=== PATIENT | female | born 1960 | race American Indian/Alaskan Native ===

== ENCOUNTER 2017-03-29 09:59 | Outpatient (CLI) | payer OTHER ==
--- NOTE | 2017-03-29 15:43 | XRay Report ---
AP and lateral of the lumbar spine. Findings: There is moderate narrowing of the disc spaces at the L3-4 and L5-S1 levels. Vertebral body heights are normal. There is diffuse osteopenia. No fractures or other acute findings are seen. Extensive amorphous uterine calcifications are incidentally noted. Impression: Discogenic changes at L3-4 and L5-S1. Evidence of fibroid uterus is noted incidentally.
--- NOTE | 2017-03-29 15:44 | XRay Report ---
RIGHT SHOULDER: History: Shoulder pain. Routine views demonstrate normal bony and soft tissue structures with normal joint alignment of the shoulder. IMPRESSION: Normal study.
== END 2017-03-29 10:00 | disposition home or self-care (01) ==
LOC: XRAY 09:59
PROVIDERS: ATTEND Internal Medicine
DX: M85.88 Other specified disorders of bone density and structure, other site (principal); M25.511 Pain in right shoulder; D25.9 Leiomyoma of uterus, unspecified; H54.62 Unqualified visual loss, left eye, normal vision right eye; L93.0 Discoid lupus erythematosus
CPT/HCPCS: 72100

== ENCOUNTER 2017-04-06 15:58 | Inpatient (IN) | payer SELFPAY ==
[2017-04-06] MEDS ORDERED: TYLENOL PO ONE ×2 (16:18→21:21)
[2017-04-06] MEDS ORDERED: TYLENOL ONE (16:20)
[2017-04-06 16:51] LABS: BUN/Creatinine Ratio 8; Blood Urea Nitrogen 6 mg/dL (7-17); Hemolysis Index 4
[2017-04-06 17:05] LABS: Hematocrit 36.8 % (30.3-42.9); Hemoglobin 12.2 gm/dl (10.1-14.3); Mean Corpuscular HGB Conc 33 % (30-34); Mean Corpuscular Hemoglobin 30 pg (28-32); Mean Corpuscular Volume 92 fl (79-97); Platelet Count 194 K/mm3 (140-440); Red Blood Count 4.02 M/mm3 (3.65-5.03); Red Cell Distribution Width 13.5 % (13.2-15.2)
--- NOTE | 2017-04-06 17:35 | XRay Report ---
FINAL REPORT EXAM: XR CHEST ROUTINE 2V HISTORY: fever/cough TECHNIQUE: Two views of the chest Comparison: None FINDINGS: Normal heart size. There R bilateral ill-defined increased markings in both lung bases infrahilar regions which may represent atelectasis or early infiltrates. Lateral film suggests lower lobe infiltrate. One of the 2 costophrenic angles is obscured. IMPRESSION: Probable lower lobe infiltrates. Obscured posterior costophrenic angle. Recommend follow-up two view chest after treatment. No hilar contour abnormality to suggest adenopathy.
[2017-04-06 18:20] LABS: Bilirubin,Urine NEG (Negative); Blood,Urine SM (Negative); Color,Urine Yellow (Yellow); Mucus,Urine FEW /HPF; Nitrite,Urine NEG (Negative)
[2017-04-06] MEDS ORDERED: NACL 0.9% 1000 ML 1,000 ML IV ONE (20:29)
[2017-04-06] MEDS ORDERED: ROCEPHIN/NS 1 GM/50 ML 1 GM/50 ML BAG IV ONE (20:29)
[2017-04-06] MEDS ORDERED: ZITHROMAX PO ONE (20:29)
[2017-04-06] MEDS ORDERED: MOTRIN PO ONE (20:32)
--- NOTE | 2017-04-06 20:33 | Emergency Department Report ---
<KARI CALIX - Last Filed: 04/06/17 20:29> ED Fever HPI - General Chief Complaint: Fever Stated Complaint: FEVER Time Seen by Provider: 04/06/17 20:18 - History of Present Illness Initial Comments: 57-year-old female past medical history medical lupus presents with complaint of fever cough and body aches and chills for 2 days. Patient states that she has had productive cough. Patient is awake alert and oriented 3 denies chest pain but does state that she feels her heart is racing slightly. Patient speaking in full sentences. Awake alert and oriented 3. Timing/Duration: other (2 days) Fever Severity/Quality: greater than 102 F Fever Therapy CAUL PULLER: cold remedies, Tylenol Associated Symptoms: denies symptoms, cough ED Review of Systems ROS: Stated complaint: FEVER Other details as noted in HPI Constitutional: fever, malaise. denies: chills Eyes: denies: eye pain, eye discharge, vision change ENT: denies: ear pain, throat pain Respiratory: cough. denies: shortness of breath, wheezing Cardiovascular: denies: chest pain, palpitations Endocrine: no symptoms reported Gastrointestinal: denies: abdominal pain, nausea, diarrhea Genitourinary: denies: urgency, dysuria, discharge Musculoskeletal: denies: back pain, joint swelling, arthralgia Skin: denies: rash, lesions Neurological: denies: headache, weakness, paresthesias Psychiatric: denies: anxiety, depression Hematological/Lymphatic: denies: easy bleeding, easy bruising ED Past Medical Hx - Past Medical History Additional medical history: Lupus - Social History Smoking Status: Former Smoker Substance Use Type: None - Medications Home Medications: Home Medications Medication Instructions Recorded Confirmed Last Taken Type Lisinopril/Hydrochlorothiazide 04/06/17 04/06/17 History 1 ED Physical Exam - General Limitations: No Limitations General appearance: alert, in no apparent distress - Head Head exam: Present: atraumatic, normocephalic - Eye Eye exam: Present: normal appearance, PERRL, EOMI - ENT ENT exam: Present: mucous membranes moist - Neck Neck exam: Present: normal inspection - Respiratory Respiratory exam: Present: normal lung sounds bilaterally, respiratory distress , rhonchi - Cardiovascular Cardiovascular Exam: Present: regular rate, normal rhythm. Absent: systolic murmur, diastolic murmur, rubs, gallop - GI/Abdominal GI/Abdominal exam: Present: soft, normal bowel sounds - Extremities Exam Extremities exam: Present: normal inspection - Back Exam Back exam: Present: normal inspection - Neurological Exam Neurological exam: Present: alert, oriented X3, CN II-XII intact, normal gait - Psychiatric Psychiatric exam: Present: normal affect, normal mood - Skin Skin exam: Present: warm, dry, intact, normal color. Absent: rash ED Course Vital Signs 04/06/17 04/06/17 04/06/17 16:11 16:43 22:32 Temperature 102.6 F H Pulse Rate 110 H 75 Respiratory 20 18 16 Rate Blood Pressure 178/93 Blood Pressure 147/83 [Left] O2 Sat by Pulse 98 95 Oximetry ED Medical Decision Making - Lab Data Result diagrams: 04/06/17 16:21 04/06/17 16:21 - Medical Decision Making A/P: Sepsis, community-acquired pneumonia, SIRS 1-case discussed with Dr. Rodríguez who agrees to admit the patient for IV antibiotic as patient meets sepsis and SIRS criteria 2-sepsis protocol ordered. I will begin to empirically treat the patient with ceftriaxone and azithromycin for community-acquired pneumonia 3- 4- Critical care attestation.: If time is entered above; I have spent that time in minutes in the direct care of this critically ill patient, excluding procedure time. ED Disposition Clinical Impression: Bilateral pneumonia Qualifiers: Pneumonia type: due to unspecified organism Lung location: unspecified part of lung Qualified Code(s): J18.9 - Pneumonia, unspecified organism Fever Qualifiers: Fever type: unspecified Qualified Code(s): R50.9 - Fever, unspecified Lupus Qualifiers: Lupus erythematosus form: unspecified Qualified Code(s): L93.0 - Discoid lupus erythematosus Condition: Stable Instructions: Bacterial Pneumonia (ED) Referrals: PRIMARY CARE, [Primary Care Provider] - 3-5 Days <CECILIA ROCA - Last Filed: 04/06/17 22:43> ED Physical Exam - General General appearance: other (APPEARS WEAK,ILL) - Neck Neck exam: Present: full ROM - Rectal Rectal exam: Present: deferred - Extremities Exam Extremities exam: Present: full ROM - Back Exam Back exam: Present: full ROM ED Medical Decision Making - Lab Data Result diagrams: 04/06/17 16:21 04/06/17 16:21 ED Disposition Time of Disposition: 22:40 (DR REBEKAH TOLBERT AND HAS ADMITTED THE PT TO THE HOSPITAL)
[2017-04-06] MEDS ORDERED: cefTRIAXone 1 GM in NACL 0.9% 20 ML IV ONE (20:45)
[2017-04-06 21:17] LABS: Alanine Aminotransferase 43 units/L (7-56); Albumin 4.2 g/dL (3.9-5); Lipase 30 units/L (13-60)
[2017-04-06 21:21] LABS: INR 1.06 (0.87-1.13)
[2017-04-06 21:22] LABS: Bilirubin,Direct < 0.2 mg/dL (0-0.2)
[2017-04-06 21:26] LABS: Bacteria,Urine 1+ /HPF (Negative); Bilirubin,Urine NEG (Negative); Blood,Urine SM (Negative); Color,Urine Straw (Yellow); Mucus,Urine FEW /HPF; Nitrite,Urine NEG (Negative); Protein,Urine <15 mg/dL mg/dL (Negative); Urobilinogen,Urine < 2.0 mg/dL (<2.0)
[2017-04-06] MEDS ORDERED: NACL ONE (21:44)
--- NOTE | 2017-04-06 22:41 | History and Physical Report ---
History of Present Illness Date of examination: 04/06/17 Date of admission: 04/06/2017 Chief complaint: Chief complaint :fever of 2 days' duration History of present illness: History of Present Illness 57-year-old -[place] female with past medical history of lupus and hypertension comes in for fever of 2 days' duration. Fever associated with cough. Some wheezing. Cough productive of mucoid sputum. Some body aches present. Fever as high as 102 F.No exacerbating or relieving factors. Review of System: Constitutional: fever, no chills, no weight loss Ears, eyes, nose, mouth and throat: no nasal congestion, no nasal discharge, no sinus pressure, no vision change, no red eye. Neck: No neck pain or rigidity. Cardiovascular: No chest pain, no orthopnea, no palpitations, no leg swelling Respiratory: No shortness of breath, no cough, no congestion, no wheezing Gastrointestinal: no abdominal pain, no nausea, no vomiting Genitourinary : no dysuria, no hematuria Musculoskeletal: no joint swelling or muscle ache Integumentary: no rash, no pruritis Neurological: no parathesias, no numbness, no tingling Endocrine: no cold or heat intolerance, no polyuria or polydipsia Hematologic/Lymphatic: no easy bruising, no easy bleeding, no gland swelling Allergic/Immunologic: no urticaria, no angioedema. -Past Medical History Additional medical history: Lupus and hypertension - Social History Smoking Status: Former Smoker Substance Use Type: None Surgical history: - Medications Home Medications: Home Medications Medication Instructions Recorded Confirmed Last Taken Type Lisinopril/Hydrochlorothiazide 04/06/17 04/06/17 History 1 Medications and Allergies Allergies Allergy/AdvReac Type Severity Reaction Status Date / Time No Known Allergies Allergy Verified 04/06/17 21:57 Home Medications Medication Instructions Recorded Confirmed Last Taken Type Lisinopril/Hydrochlorothiazide 04/06/17 04/06/17 History 1 Exam - Constitutional Vitals: Temp Pulse Resp BP Pulse Ox 102.6 F H 75 16 147/83 95 04/06/17 16:11 04/06/17 22:32 04/06/17 22:32 04/06/17 22:32 04/06/17 22:32 General appearance: Present: no acute distress, well-nourished - EENT Eyes: Present: PERRL ENT: hearing intact, clear oral mucosa - Neck Neck: Present: supple, normal ROM - Respiratory Respiratory effort: normal Respiratory: right: rhonchi, bilateral: CTA - Cardiovascular Heart rate: 100 Rhythm: regular Heart Sounds: Present: S1 & S2. Absent: rub, click - Extremities Extremities: no ischemia, pulses intact, pulses symmetrical, No edema Peripheral Pulses: within normal limits - Abdominal General gastrointestinal: Present: soft, non-tender, non-distended, normal bowel sounds Female genitourinary: Present: normal - Rectal Rectal Exam: deferred - Integumentary Integumentary: Present: clear, warm, dry - Musculoskeletal Musculoskeletal: gait normal, strength equal bilaterally - Psychiatric Psychiatric: appropriate mood/affect, intact judgment & insight - Neurologic Neurologic: CNII-XII intact, moves all extremities - Allied Health Allied health notes reviewed: nursing, case management Results - Labs CBC & Chem 7: 04/07/17 06:43 04/07/17 06:43 Labs: Laboratory Last Values WBC 5.4 K/mm3 (4.5-11.0) 04/06/17 16:21 RBC 4.02 M/mm3 (3.65-5.03) 04/06/17 16:21 Hgb 12.2 gm/dl (10.1-14.3) 04/06/17 16:21 Hct 36.8 % (30.3-42.9) 04/06/17 16:21 MCV 92 fl (79-97) 04/06/17 16:21 MCH 30 pg (28-32) 04/06/17 16:21 MCHC 33 % (30-34) 04/06/17 16:21 RDW 13.5 % (13.2-15.2) 04/06/17 16:21 Plt Count 194 K/mm3 (140-440) 04/06/17 16:21 PT 14.3 Sec. (12.2-14.9) 04/06/17 20:38 INR 1.06 (0.87-1.13) 04/06/17 20:38 D-Dimer 607.63 ng/mlDDU (0-234) H 04/06/17 20:38 Sodium 137 mmol/L (137-145) 04/06/17 16:21 Potassium 3.7 mmol/L (3.6-5.0) 04/06/17 16:21 Chloride 98.6 mmol/L (98-107) 04/06/17 16:21 Carbon Dioxide 21 mmol/L (22-30) L 04/06/17 16:21 Anion Gap 21 mmol/L 04/06/17 16:21 BUN 6 mg/dL (7-17) L 04/06/17 16:21 Creatinine 0.8 mg/dL (0.7-1.2) 04/06/17 16:21 Estimated GFR > 60 ml/min 04/06/17 16:21 BUN/Creatinine Ratio 8 % 04/06/17 16:21 Glucose 90 mg/dL (65-100) 04/06/17 16:21 Lactic Acid 0.90 mmol/L (0.7-2.0) 04/06/17 20:38 Calcium 9.0 mg/dL (8.4-10.2) 04/06/17 16:21 Total Bilirubin 0.80 mg/dL (0.1-1.2) 04/06/17 20:38 Direct Bilirubin < 0.2 mg/dL (0-0.2) 04/06/17 20:38 Indirect Bilirubin 0.6 mg/dL 04/06/17 20:38 AST 33 units/L (5-40) 04/06/17 20:38 ALT 43 units/L (7-56) 04/06/17 20:38 Alkaline Phosphatase 67 units/L (35-129) 04/06/17 20:38 Total Protein 7.9 g/dL (6.3-8.2) 04/06/17 20:38 Albumin 4.2 g/dL (3.9-5) 04/06/17 20:38 Albumin/Globulin Ratio 1.1 % 04/06/17 20:38 Lipase 30 units/L (13-60) 04/06/17 20:38 Urine Color Straw (Yellow) 04/06/17 20:30 Urine Turbidity Clear (Clear) 04/06/17 20:30 Urine pH 6.0 (5.0-7.0) 04/06/17 20:30 Ur Specific [place] 1.004 (1.003-1.030) 04/06/17 20:30 Urine Protein <15 mg/dl mg/dL (Negative) 04/06/17 20:30 Urine Glucose (UA) Neg mg/dL (Negative) 04/06/17 20:30 Urine Ketones Neg mg/dL (Negative) 04/06/17 20:30 Urine Blood Sm (Negative) 04/06/17 20:30 Urine Nitrite Neg (Negative) 04/06/17 20:30 Urine Bilirubin Neg (Negative) 04/06/17 20:30 Urine Urobilinogen < 2.0 mg/dL (<2.0) 04/06/17 20:30 Ur Leukocyte Esterase Tr (Negative) 04/06/17 20:30 Urine WBC (Auto) 1.0 /HPF (0.0-6.0) 04/06/17 20:30 Urine RBC (Auto) 4.0 /HPF (0.0-6.0) 04/06/17 20:30 U Epithel Cells (Auto) 1.0 /HPF (0-13.0) 04/06/17 20:30 Urine Bacteria (Auto) 1+ /HPF (Negative) 04/06/17 20:30 Urine Mucus Few /HPF 04/06/17 20:30 - Imaging and Cardiology EKG: report reviewed (normal sinus rhythm heart rate of [address]-T wave changes. ) Chest x-ray: report reviewed (probable bilateral lower lobe infiltrates) Assessment and Plan Advance Directives: Yes (full code) VTE prophylaxis?: Chemical Plan of care discussed with patient/family: Yes - Patient Problems (1) SIRS (systemic inflammatory response syndrome) Current Visit: Yes Status: Acute Plan to address problem: Clinical picture c/w SIRS.Lactic acid is normal.High temp and PNA precipitating SIRS.IV fluids and IV Abx. (2) HCAP (healthcare-associated pneumonia) Current Visit: Yes Status: Acute Plan to address problem: patient initiated on Rocephin and Zithromax. Also Duonebs 6 hours when necessary (3) COPD (chronic obstructive pulmonary disease) Current Visit: Yes Status: Chronic Qualifiers: Emphysema type: unspecified Plan to address problem: Patient initiated on DuoNeb every 6 hours around the clock (4) Lupus Current Visit: Yes Status: Chronic Qualifiers: Lupus erythematosus form: systemic Plan to address problem: not on any medications. May benefit from plaquenil. ds DNA ordered.Will defer to hospitalist team regarding starting plaquenil. (5) Hypertension Current Visit: Yes Status: Chronic Qualifiers: Hypertension type: essential hypertension Qualified Code(s): I10 - Essential (primary) hypertension Plan to address problem: continue lisinopril (6) DVT prophylaxis Current Visit: Yes Status: Acute Plan to address problem: on Lovenox.
[2017-04-06] MEDS ORDERED: MILK OF MAGNESIA PO PRN ×2 (22:47→22:53)
[2017-04-06] MEDS ORDERED: PERCOCET 5/325 PO PRN (22:47)
[2017-04-06] MEDS ORDERED: DULCOLAX PR PRN ×2 (22:47→22:53)
[2017-04-06] MEDS ORDERED: TYLENOL PO PRN (22:53)
[2017-04-06] MEDS ORDERED: ZOFRAN IV PRN (22:53)
[2017-04-06] MEDS ORDERED: AMBIEN PO PRN (22:53)
[2017-04-06] MEDS ORDERED: MORPHINE IV PRN (22:53)
[2017-04-06] MEDS ORDERED: D5NS 1,000 ML IV SCH (23:00)
--- NOTE | 2017-04-06 23:30 | Cat Scan Report ---
FINAL REPORT EXAM: CT ANGIO CHEST HISTORY: d-dimer+ tachy, lupus ? PE COMPARISON: Chest x-ray from the same date. TECHNIQUE: Contiguous axial images were obtained. Additional sagittal and coronal reformatted images were obtained. Administration of IV contrast given per institution protocol. Images submitted for interpretation. Max intensity projection images. FINDINGS: Mild cardiac enlargement. Thoracic aorta normal in caliber. The ascending thoracic aorta measures 3.3 centimeters in diameter. No dissection or rupture. No pulmonary embolus. Patchy airspace consolidation the medial margin right lower lobe concerning for pneumonia. Probable reactive right hilar and subcarinal lymph nodes. There is an 11 x 9 millimeter right hilar lymph node. Subcarinal lymph node measuring 11 x 7 millimeters. No enlarged axillary lymph nodes. Trace right-sided pleural effusion. No obstructive lesion centrally within the tracheobronchial tree. Mild degenerative changes of the thoracic spine. IMPRESSION: No pulmonary embolus. Airspace consolidation medial margin right lower lobe concerning for pneumonia with probable reactive right hilar lymph nodes.
[2017-04-07] MEDS: DUONEB *Not for PRN Use IH SCH ×5 (05:47→20:14)
[2017-04-07] MEDS: TYLENOL PO PRN ×3 (07:21→19:05)
[2017-04-07 07:32] LABS: Basophils # (Auto) 0.1 K/mm3 (0.0-0.1); Basophils % (Auto) 1.5 % (0.0-1.8); Eosinophils % (Auto) 0.2 % (0.0-4.3); Hematocrit 35.3 % (30.3-42.9); Hemoglobin 11.6 gm/dl (10.1-14.3); Lymphocytes # (Auto) 0.7 K/mm3 (1.2-5.4); Mean Corpuscular HGB Conc 33 % (30-34); Mean Corpuscular Hemoglobin 30 pg (28-32); Mean Corpuscular Volume 91 fl (79-97); Monocytes # (Auto) 0.4 K/mm3 (0.0-0.8); Monocytes % (Auto) 11.9 % (0.0-7.3); Platelet Count 179 K/mm3 (140-440); Red Blood Count 3.89 M/mm3 (3.65-5.03); Red Cell Distribution Width 13.6 % (13.2-15.2)
[2017-04-07 07:51] LABS: Alanine Aminotransferase 35 units/L (7-56); Albumin 3.6 g/dL (3.9-5); BUN/Creatinine Ratio 11; Blood Urea Nitrogen 8 mg/dL (7-17); Calcium 8.5 mg/dL (8.4-10.2); Hemolysis Index 1
[2017-04-07] MEDS: LOVENOX SUB-Q SCH (09:33)
[2017-04-07] MEDS: ZESTRIL PO SCH (09:35)
[2017-04-07] MEDS ORDERED: cefTRIAXone 2 GM in NACL 0.9% 20 ML IV SCH (10:00)
[2017-04-07] MEDS ORDERED: ZITHROMAX 500 MG in NACL 0.9% 250ML 250 ML IV SCH (10:00)
[2017-04-07] MEDS: NACL 0.9% 1000 ML 1,000 ML IV SCH (15:06)
--- NOTE | 2017-04-07 20:46 | Progress Note ---
Assessment and Plan Assessment and plan: 57-year-old -[place] female with past medical history of lupus and hypertension comes in for fever of 2 days' duration. Fever associated with cough. Some wheezing. Cough productive of mucoid sputum. Some body aches present. Fever as high as 102 F. No exacerbating or relieving factors. (1) Sepsis Clinical picture c/w Spesis. Will increase IV fluids, Adjust abx, ID consult (2) Pneumonia likely gram negative Discontinue IV Rocephin and Zithromax, start patient on Zosyn and vancomycin. Also Duonebs 6 hours when necessary Consult ID Increase IV fluids (3) COPD (chronic obstructive pulmonary disease) Current Visit: Yes Status: Chronic Qualifiers: Emphysema type: unspecified Plan to address problem: Patient initiated on DuoNeb every 6 hours around the clock (4) Lupus Current Visit: Yes Status: Chronic Qualifiers: Lupus erythematosus form: systemic Plan to address problem: not on any medications. May benefit from plaquenil. Once infection controlled. (5) Hypertension Current Visit: Yes Status: Chronic Qualifiers: Hypertension type: essential hypertension Qualified Code(s): I10 - Essential (primary) hypertension Plan to address problem: continue lisinopril (6) Elevated D dimer R/O DVT. (7) DVT prophylaxis Current Visit: Yes Status: Acute Plan to address problem: on Lovenox. History Interval history: Patient seen and examined, markedly lathergic still with shortness of breath, no chest pain, still febrile. Hospitalist Physical - Constitutional Vitals: Temp Pulse Resp BP Pulse Ox 102.5 F H 79 20 135/74 98 04/07/17 16:37 04/07/17 20:17 04/07/17 20:17 04/07/17 16:37 04/07/17 19:27 General appearance: Present: mild distress, well-nourished - EENT Eyes: Present: PERRL, EOM intact ENT: hearing intact - Neck Neck: Present: supple, normal ROM - Respiratory Respiratory: bilateral: rhonchi - Cardiovascular Rhythm: regular Heart Sounds: Present: S1 & S2. Absent: systolic murmur, diastolic murmur - Extremities Extremities: no ischemia, pulses intact, pulses symmetrical, No edema Peripheral Pulses: within normal limits - Abdominal General gastrointestinal: soft, non-tender, non-distended, normal bowel sounds - Integumentary Integumentary: Present: clear, warm, dry - Psychiatric Psychiatric: appropriate mood/affect, intact judgment & insight, cooperative - Neurologic Neurologic: CNII-XII intact, moves all extremities - Allied Health Allied health notes reviewed: nursing Results - Labs CBC & Chem 7: 04/08/17 05:16 04/08/17 05:16 Labs: Laboratory Last Values WBC 3.3 K/mm3 (4.5-11.0) L 04/07/17 06:43 RBC 3.89 M/mm3 (3.65-5.03) 04/07/17 06:43 Hgb 11.6 gm/dl (10.1-14.3) 04/07/17 06:43 Hct 35.3 % (30.3-42.9) 04/07/17 06:43 MCV 91 fl (79-97) 04/07/17 06:43 MCH 30 pg (28-32) 04/07/17 06:43 MCHC 33 % (30-34) 04/07/17 06:43 RDW 13.6 % (13.2-15.2) 04/07/17 06:43 Plt Count 179 K/mm3 (140-440) 04/07/17 06:43 Lymph % (Auto) 22.0 % (13.4-35.0) 04/07/17 06:43 Chambers % (Auto) 11.9 % (0.0-7.3) H 04/07/17 06:43 Eos % (Auto) 0.2 % (0.0-4.3) 04/07/17 06:43 Baso % (Auto) 1.5 % (0.0-1.8) 04/07/17 06:43 Lymph # 0.7 K/mm3 (1.2-5.4) L 04/07/17 06:43 Chambers # 0.4 K/mm3 (0.0-0.8) 04/07/17 06:43 Eos # 0.0 K/mm3 (0.0-0.4) 04/07/17 06:43 Baso # 0.1 K/mm3 (0.0-0.1) 04/07/17 06:43 Seg Neutrophils % 64.4 % (40.0-70.0) 04/07/17 06:43 Seg Neutrophils # 2.1 K/mm3 (1.8-7.7) 04/07/17 06:43 PT 14.3 Sec. (12.2-14.9) 04/06/17 20:38 INR 1.06 (0.87-1.13) 04/06/17 20:38 D-Dimer 607.63 ng/mlDDU (0-234) H 04/06/17 20:38 Sodium 140 mmol/L (137-145) 04/07/17 06:43 Potassium 3.7 mmol/L (3.6-5.0) 04/07/17 06:43 Chloride 103.0 mmol/L (98-107) 04/07/17 06:43 Carbon Dioxide 22 mmol/L (22-30) 04/07/17 06:43 Anion Gap 19 mmol/L 04/07/17 06:43 BUN 8 mg/dL (7-17) 04/07/17 06:43 Creatinine 0.7 mg/dL (0.7-1.2) 04/07/17 06:43 Estimated GFR > 60 ml/min 04/07/17 06:43 BUN/Creatinine Ratio 11 % 04/07/17 06:43 Glucose 102 mg/dL (65-100) H 04/07/17 06:43 Hemoglobin A1c 5.0 % (4-6) 04/06/17 22:57 Lactic Acid 0.70 mmol/L (0.7-2.0) 04/06/17 22:53 Calcium 8.5 mg/dL (8.4-10.2) 04/07/17 06:43 Total Bilirubin 0.70 mg/dL (0.1-1.2) 04/07/17 06:43 Direct Bilirubin < 0.2 mg/dL (0-0.2) 04/06/17 20:38 Indirect Bilirubin 0.6 mg/dL 04/06/17 20:38 AST 26 units/L (5-40) 04/07/17 06:43 ALT 35 units/L (7-56) 04/07/17 06:43 Alkaline Phosphatase 59 units/L (35-129) 04/07/17 06:43 Total Protein 7.2 g/dL (6.3-8.2) 04/07/17 06:43 Albumin 3.6 g/dL (3.9-5) L 04/07/17 06:43 Albumin/Globulin Ratio 1.0 % 04/07/17 06:43 Lipase 30 units/L (13-60) 04/06/17 20:38 Urine Color Straw (Yellow) 04/06/17 20:30 Urine Turbidity Clear (Clear) 04/06/17 20:30 Urine pH 6.0 (5.0-7.0) 04/06/17 20:30 Ur Specific [place] 1.004 (1.003-1.030) 04/06/17 20:30 Urine Protein <15 mg/dl mg/dL (Negative) 04/06/17 20:30 Urine Glucose (UA) Neg mg/dL (Negative) 04/06/17 20:30 Urine Ketones Neg mg/dL (Negative) 04/06/17 20:30 Urine Blood Sm (Negative) 04/06/17 20:30 Urine Nitrite Neg (Negative) 04/06/17 20:30 Urine Bilirubin Neg (Negative) 04/06/17 20:30 Urine Urobilinogen < 2.0 mg/dL (<2.0) 04/06/17 20:30 Ur Leukocyte Esterase Tr (Negative) 04/06/17 20:30 Urine WBC (Auto) 1.0 /HPF (0.0-6.0) 04/06/17 20:30 Urine RBC (Auto) 4.0 /HPF (0.0-6.0) 04/06/17 20:30 U Epithel Cells (Auto) 1.0 /HPF (0-13.0) 04/06/17 20:30 Urine Bacteria (Auto) 1+ /HPF (Negative) 04/06/17 20:30 Urine Mucus Few /HPF 04/06/17 20:30 - Imaging and Cardiology Chest x-ray: image reviewed (rll infiltrate)
[2017-04-07] MEDS ORDERED: VANCOMYCIN/NS 1 GM/250 ML 1 GM/250 ML BAG IV ONE (20:53)
[2017-04-07] MEDS ORDERED: VANCOMYCIN PHARMACY TO DOSE IV SCH (21:00)
[2017-04-07] MEDS: ZOSYN/NS 4.5GM/100ML 4.5 GM/100 ML VIAL IV SCH (21:52)
[2017-04-07] MEDS: VANCOMYCIN 1,250 MG in NACL 0.9% 250ML 250 ML IV ONE ×2 (22:30→23:29)
[2017-04-08] MEDS: DUONEB *Not for PRN Use IH SCH ×4 (02:00→21:00)
[2017-04-08] MEDS: ZOSYN/NS 4.5GM/100ML 4.5 GM/100 ML VIAL IV SCH ×3 (05:36→21:54)
[2017-04-08 05:37] LABS: Hematocrit 31.2 % (30.3-42.9); Hemoglobin 10.3 gm/dl (10.1-14.3); Mean Corpuscular HGB Conc 33 % (30-34); Mean Corpuscular Hemoglobin 30 pg (28-32); Mean Corpuscular Volume 92 fl (79-97); Platelet Count 145 K/mm3 (140-440); Red Blood Count 3.41 M/mm3 (3.65-5.03); Red Cell Distribution Width 13.7 % (13.2-15.2)
[2017-04-08] MEDS: TYLENOL PO PRN ×2 (05:37→16:12)
[2017-04-08 05:56] LABS: BUN/Creatinine Ratio 9; Blood Urea Nitrogen 7 mg/dL (7-17); Calcium 7.7 mg/dL (8.4-10.2); Hemolysis Index 1
[2017-04-08] MEDS: NACL 0.9% 1000 ML 1,000 ML IV SCH ×2 (07:19→15:56)
[2017-04-08] MEDS: VANCOMYCIN/NS 1 GM/250 ML 1 GM/250 ML BAG IV SCH ×2 (10:27→22:43)
[2017-04-08] MEDS: LOVENOX SUB-Q SCH (10:28)
[2017-04-08] MEDS: ZESTRIL PO SCH (10:29)
--- NOTE | 2017-04-08 13:21 | Vascular Lab Report ---
LOWER EXTREMITY VENOUS DUPLEX: REASON FOR EXAM: Lupus, fever, hypertension, DVT. COMMENTS ON THE RIGHT: All veins visualized are freely compressible without evidence of internal echogenicity. Flow is spontaneous and phasic throughout. COMMENTS ON THE LEFT: All veins visualized are freely compressible without evidence of internal echogenicity. Flow is spontaneous and phasic throughout. IMPRESSION: No evidence of acute or chronic deep venous thrombosis in either lower extremity.
[2017-04-08] MEDS: ROBITUSSIN AC PO PRN (13:31)
--- NOTE | 2017-04-08 18:39 | Progress Note ---
Assessment and Plan Assessment and plan: 57-year-old -E[place]ian female with past medical history of lupus and hypertension comes in for fever of 2 days' duration. Fever associated with cough. Some wheezing. Cough productive of mucoid sputum. Some body aches present. Fever as high as 102 F. No exacerbating or relieving factors. (1) Sepsis Clinical picture c/w Spesis. Will increase IV fluids, Adjust abx, ID consult (2) Pneumonia likely gram negative Continue Zosyn and vancomycin. Also Duonebs 6 hours when necessary IV fluids (3) COPD (chronic obstructive pulmonary disease) Patient initiated on DuoNeb every 6 hours around the clock (4) Lupus not on any medications. May benefit from plaquenil. Once infection controlled. (5) Hypertension continue lisinopril (6) Elevated D dimer R/O DVT. (7) DVT prophylaxis on Lovenox. History Interval history: Patient seen and examined, markedly lathergic still with shortness of breath, no chest pain, still febrile. Hospitalist Physical - Physical exam Narrative exam: General appearance: Present: mild distress, well-nourished - EENT Eyes: Present: PERRL, EOM intact ENT: hearing intact - Neck Neck: Present: supple, normal ROM - Respiratory Respiratory: bilateral: rhonchi - Cardiovascular Rhythm: regular Heart Sounds: Present: S1 & S2. Absent: systolic murmur, diastolic murmur - Extremities Extremities: no ischemia, pulses intact, pulses symmetrical, No edema Peripheral Pulses: within normal limits - Abdominal General gastrointestinal: soft, non-tender, non-distended, normal bowel sounds - Integumentary Integumentary: Present: clear, warm, dry - Psychiatric Psychiatric: appropriate mood/affect, intact judgment & insight, cooperative - Neurologic Neurologic: CNII-XII intact, moves all extremities - Allied Health Allied health notes reviewed: nursing - Constitutional Vitals: Temp Pulse Resp BP Pulse Ox 99.7 F H 96 H 20 149/84 100 04/08/17 16:35 04/08/17 16:35 04/08/17 16:35 04/08/17 16:35 04/08/17 16:35 General appearance: Present: mild distress, well-nourished Results - Labs CBC & Chem 7: 04/08/17 05:16 04/08/17 05:16 Labs: Laboratory Last Values WBC 3.0 K/mm3 (4.5-11.0) L 04/08/17 05:16 RBC 3.41 M/mm3 (3.65-5.03) L 04/08/17 05:16 Hgb 10.3 gm/dl (10.1-14.3) 04/08/17 05:16 Hct 31.2 % (30.3-42.9) 04/08/17 05:16 MCV 92 fl (79-97) 04/08/17 05:16 MCH 30 pg (28-32) 04/08/17 05:16 MCHC 33 % (30-34) 04/08/17 05:16 RDW 13.7 % (13.2-15.2) 04/08/17 05:16 Plt Count 145 K/mm3 (140-440) 04/08/17 05:16 Lymph % (Auto) 22.0 % (13.4-35.0) 04/07/17 06:43 [place] % (Auto) 11.9 % (0.0-7.3) H 04/07/17 06:43 Eos % (Auto) 0.2 % (0.0-4.3) 04/07/17 06:43 Baso % (Auto) 1.5 % (0.0-1.8) 04/07/17 06:43 Lymph # 0.7 K/mm3 (1.2-5.4) L 04/07/17 06:43 [place] # 0.4 K/mm3 (0.0-0.8) 04/07/17 06:43 Eos # 0.0 K/mm3 (0.0-0.4) 04/07/17 06:43 Baso # 0.1 K/mm3 (0.0-0.1) 04/07/17 06:43 Seg Neutrophils % 64.4 % (40.0-70.0) 04/07/17 06:43 Seg Neutrophils # 2.1 K/mm3 (1.8-7.7) 04/07/17 06:43 PT 14.3 Sec. (12.2-14.9) 04/06/17 20:38 INR 1.06 (0.87-1.13) 04/06/17 20:38 D-Dimer 607.63 ng/mlDDU (0-234) H 04/06/17 20:38 Sodium 142 mmol/L (137-145) 04/08/17 05:16 Potassium 3.7 mmol/L (3.6-5.0) 04/08/17 05:16 Chloride 105.7 mmol/L (98-107) 04/08/17 05:16 Carbon Dioxide 21 mmol/L (22-30) L 04/08/17 05:16 Anion Gap 19 mmol/L 04/08/17 05:16 BUN 7 mg/dL (7-17) 04/08/17 05:16 Creatinine 0.8 mg/dL (0.7-1.2) 04/08/17 05:16 Estimated GFR > 60 ml/min 04/08/17 05:16 BUN/Creatinine Ratio 9 % 04/08/17 05:16 Glucose 96 mg/dL (65-100) 04/08/17 05:16 Hemoglobin A1c 5.0 % (4-6) 04/06/17 22:57 Lactic Acid 0.70 mmol/L (0.7-2.0) 04/06/17 22:53 Calcium 7.7 mg/dL (8.4-10.2) L 04/08/17 05:16 Total Bilirubin 0.70 mg/dL (0.1-1.2) 04/07/17 06:43 Direct Bilirubin < 0.2 mg/dL (0-0.2) 04/06/17 20:38 Indirect Bilirubin 0.6 mg/dL 04/06/17 20:38 AST 26 units/L (5-40) 04/07/17 06:43 ALT 35 units/L (7-56) 04/07/17 06:43 Alkaline Phosphatase 59 units/L (35-129) 04/07/17 06:43 Total Protein 7.2 g/dL (6.3-8.2) 04/07/17 06:43 Albumin 3.6 g/dL (3.9-5) L 04/07/17 06:43 Albumin/Globulin Ratio 1.0 % 04/07/17 06:43 Lipase 30 units/L (13-60) 04/06/17 20:38 Urine Color Straw (Yellow) 04/06/17 20:30 Urine Turbidity Clear (Clear) 04/06/17 20:30 Urine pH 6.0 (5.0-7.0) 04/06/17 20:30 Ur Specific [place] 1.004 (1.003-1.030) 04/06/17 20:30 Urine Protein <15 mg/dl mg/dL (Negative) 04/06/17 20:30 Urine Glucose (UA) Neg mg/dL (Negative) 04/06/17 20:30 Urine Ketones Neg mg/dL (Negative) 04/06/17 20:30 Urine Blood Sm (Negative) 04/06/17 20:30 Urine Nitrite Neg (Negative) 04/06/17 20:30 Urine Bilirubin Neg (Negative) 04/06/17 20:30 Urine Urobilinogen < 2.0 mg/dL (<2.0) 04/06/17 20:30 Ur Leukocyte Esterase Tr (Negative) 04/06/17 20:30 Urine WBC (Auto) 1.0 /HPF (0.0-6.0) 04/06/17 20:30 Urine RBC (Auto) 4.0 /HPF (0.0-6.0) 04/06/17 20:30 U Epithel Cells (Auto) 1.0 /HPF (0-13.0) 04/06/17 20:30 Urine Bacteria (Auto) 1+ /HPF (Negative) 04/06/17 20:30 Urine Mucus Few /HPF 04/06/17 20:30
[2017-04-09] MEDS: NACL 0.9% 1000 ML 1,000 ML IV SCH ×3 (01:23→19:47)
[2017-04-09] MEDS: DUONEB *Not for PRN Use IH SCH ×4 (02:00→20:05)
[2017-04-09] MEDS: ZOFRAN IV PRN ×2 (06:09→12:58)
[2017-04-09] MEDS: ZOSYN/NS 4.5GM/100ML 4.5 GM/100 ML VIAL IV SCH ×3 (06:09→21:16)
[2017-04-09] MEDS: ZESTRIL PO SCH (09:32)
[2017-04-09] MEDS: LOVENOX SUB-Q SCH (09:33)
[2017-04-09] MEDS: VANCOMYCIN/NS 1 GM/250 ML 1 GM/250 ML BAG IV SCH ×2 (09:34→22:18)
--- NOTE | 2017-04-09 13:08 | Progress Note ---
Assessment and Plan Assessment and plan: 57-year-old -[place] female with past medical history of lupus and hypertension comes in for fever of 2 days' duration. Fever associated with cough. Some wheezing. Cough productive of mucoid sputum. Some body aches present. Fever as high as 102 F. No exacerbating or relieving factors. (1) Sepsis Clinical picture c/w Spesis. Change IVF to 125cc/hr rate, Adjust abx, ID consult (2) Pneumonia likely gram negative Continue Zosyn and vancomycin. Also Duonebs 6 hours when necessary IV fluids (3) COPD (chronic obstructive pulmonary disease) Patient initiated on DuoNeb every 6 hours around the clock (4) Lupus not on any medications. May benefit from plaquenil. Once infection controlled. (5) Hypertension continue lisinopril (6) Elevated D dimer R/O DVT. (7) DVT prophylaxis on Lovenox. Encouraged ambulation. Discussed with patient and Case management and Nursing staff History Interval history: Patient seen and examined, Reports improvement today. No new complaints, still with some shortness of breath but ambulating Hospitalist Physical - Physical exam Narrative exam: General appearance: Present: mild distress, well-nourished - EENT Eyes: Present: PERRL, EOM intact ENT: hearing intact - Neck Neck: Present: supple, normal ROM - Respiratory Respiratory: bilateral: rhonchi - Cardiovascular Rhythm: regular Heart Sounds: Present: S1 & S2. Absent: systolic murmur, diastolic murmur - Extremities Extremities: no ischemia, pulses intact, pulses symmetrical, No edema Peripheral Pulses: within normal limits - Abdominal General gastrointestinal: soft, non-tender, non-distended, normal bowel sounds - Integumentary Integumentary: Present: clear, warm, dry - Psychiatric Psychiatric: appropriate mood/affect, intact judgment & insight, cooperative - Neurologic Neurologic: CNII-XII intact, moves all extremities - Allied Health Allied health notes reviewed: nursing - Constitutional Vitals: Temp Pulse Resp BP Pulse Ox 99.9 F H 85 20 154/82 94 04/09/17 11:37 04/09/17 11:37 04/09/17 11:37 04/09/17 11:37 04/09/17 11:37 General appearance: Present: mild distress, well-nourished Results - Labs CBC & Chem 7: 04/08/17 05:16 04/08/17 05:16 Labs: Laboratory Last Values WBC 3.0 K/mm3 (4.5-11.0) L 04/08/17 05:16 RBC 3.41 M/mm3 (3.65-5.03) L 04/08/17 05:16 Hgb 10.3 gm/dl (10.1-14.3) 04/08/17 05:16 Hct 31.2 % (30.3-42.9) 04/08/17 05:16 MCV 92 fl (79-97) 04/08/17 05:16 MCH 30 pg (28-32) 04/08/17 05:16 MCHC 33 % (30-34) 04/08/17 05:16 RDW 13.7 % (13.2-15.2) 04/08/17 05:16 Plt Count 145 K/mm3 (140-440) 04/08/17 05:16 Lymph % (Auto) 22.0 % (13.4-35.0) 04/07/17 06:43 [place] % (Auto) 11.9 % (0.0-7.3) H 04/07/17 06:43 Eos % (Auto) 0.2 % (0.0-4.3) 04/07/17 06:43 Baso % (Auto) 1.5 % (0.0-1.8) 04/07/17 06:43 Lymph # 0.7 K/mm3 (1.2-5.4) L 04/07/17 06:43 [place] # 0.4 K/mm3 (0.0-0.8) 04/07/17 06:43 Eos # 0.0 K/mm3 (0.0-0.4) 04/07/17 06:43 Baso # 0.1 K/mm3 (0.0-0.1) 04/07/17 06:43 Seg Neutrophils % 64.4 % (40.0-70.0) 04/07/17 06:43 Seg Neutrophils # 2.1 K/mm3 (1.8-7.7) 04/07/17 06:43 PT 14.3 Sec. (12.2-14.9) 04/06/17 20:38 INR 1.06 (0.87-1.13) 04/06/17 20:38 D-Dimer 607.63 ng/mlDDU (0-234) H 04/06/17 20:38 Sodium 142 mmol/L (137-145) 04/08/17 05:16 Potassium 3.7 mmol/L (3.6-5.0) 04/08/17 05:16 Chloride 105.7 mmol/L (98-107) 04/08/17 05:16 Carbon Dioxide 21 mmol/L (22-30) L 04/08/17 05:16 Anion Gap 19 mmol/L 04/08/17 05:16 BUN 7 mg/dL (7-17) 04/08/17 05:16 Creatinine 0.8 mg/dL (0.7-1.2) 04/08/17 05:16 Estimated GFR > 60 ml/min 04/08/17 05:16 BUN/Creatinine Ratio 9 % 04/08/17 05:16 Glucose 96 mg/dL (65-100) 04/08/17 05:16 Hemoglobin A1c 5.0 % (4-6) 04/06/17 22:57 Lactic Acid 0.70 mmol/L (0.7-2.0) 04/06/17 22:53 Calcium 7.7 mg/dL (8.4-10.2) L 04/08/17 05:16 Total Bilirubin 0.70 mg/dL (0.1-1.2) 04/07/17 06:43 Direct Bilirubin < 0.2 mg/dL (0-0.2) 04/06/17 20:38 Indirect Bilirubin 0.6 mg/dL 04/06/17 20:38 AST 26 units/L (5-40) 04/07/17 06:43 ALT 35 units/L (7-56) 04/07/17 06:43 Alkaline Phosphatase 59 units/L (35-129) 04/07/17 06:43 Total Protein 7.2 g/dL (6.3-8.2) 04/07/17 06:43 Albumin 3.6 g/dL (3.9-5) L 04/07/17 06:43 Albumin/Globulin Ratio 1.0 % 04/07/17 06:43 Lipase 30 units/L (13-60) 04/06/17 20:38 Urine Color Straw (Yellow) 04/06/17 20:30 Urine Turbidity Clear (Clear) 04/06/17 20:30 Urine pH 6.0 (5.0-7.0) 04/06/17 20:30 Ur Specific [place] 1.004 (1.003-1.030) 04/06/17 20:30 Urine Protein <15 mg/dl mg/dL (Negative) 04/06/17 20:30 Urine Glucose (UA) Neg mg/dL (Negative) 04/06/17 20:30 Urine Ketones Neg mg/dL (Negative) 04/06/17 20:30 Urine Blood Sm (Negative) 04/06/17 20:30 Urine Nitrite Neg (Negative) 04/06/17 20:30 Urine Bilirubin Neg (Negative) 04/06/17 20:30 Urine Urobilinogen < 2.0 mg/dL (<2.0) 04/06/17 20:30 Ur Leukocyte Esterase Tr (Negative) 04/06/17 20:30 Urine WBC (Auto) 1.0 /HPF (0.0-6.0) 04/06/17 20:30 Urine RBC (Auto) 4.0 /HPF (0.0-6.0) 04/06/17 20:30 U Epithel Cells (Auto) 1.0 /HPF (0-13.0) 04/06/17 20:30 Urine Bacteria (Auto) 1+ /HPF (Negative) 04/06/17 20:30 Urine Mucus Few /HPF 04/06/17 20:30
[2017-04-09] MEDS: TYLENOL PO PRN (14:52)
[2017-04-09] MEDS: ROBITUSSIN AC PO PRN (17:50)
[2017-04-10] MEDS: ZOFRAN IV PRN ×3 (00:47→18:43)
[2017-04-10] MEDS: ROBITUSSIN AC PO PRN ×2 (00:47→11:34)
[2017-04-10] MEDS: TYLENOL PO PRN ×2 (00:48→11:34)
[2017-04-10] MEDS: DUONEB *Not for PRN Use IH SCH ×4 (02:15→19:53)
[2017-04-10] MEDS: NACL 0.9% 1000 ML 1,000 ML IV SCH ×3 (05:40→23:10)
[2017-04-10] MEDS: ZOSYN/NS 4.5GM/100ML 4.5 GM/100 ML VIAL IV SCH ×3 (05:42→23:10)
[2017-04-10 06:14] LABS: Hematocrit 29.1 % (30.3-42.9); Hemoglobin 9.8 gm/dl (10.1-14.3); Mean Corpuscular HGB Conc 34 % (30-34); Mean Corpuscular Hemoglobin 31 pg (28-32); Mean Corpuscular Volume 92 fl (79-97); Platelet Count 135 K/mm3 (140-440); Red Blood Count 3.17 M/mm3 (3.65-5.03); Red Cell Distribution Width 13.7 % (13.2-15.2)
[2017-04-10] MEDS: ZESTRIL PO SCH (11:29)
[2017-04-10] MEDS: LOVENOX SUB-Q SCH (11:30)
[2017-04-10] MEDS: VANCOMYCIN/NS 1 GM/250 ML 1 GM/250 ML BAG IV SCH (12:30)
--- NOTE | 2017-04-10 13:08 | Consultation ---
History of Present Illness - Reason for Consult Consult date: 04/10/17 Requesting physician: MIRELLA JOHNSON - History of Present Illness 57 years old female with history of lupus and hypertension admitted on 04/06/17 due to [place] with history of subjective fever, malaise and cough with white mucus production. Patient also reports some wheezing. Reports her had recently the flu. She did not get the flu shot this year. She had the pneumonia vaccine 5 years ago. She reports nausea and some vomiting. Denies history of MRSA colonization. In the emergency room, initial temperature was 102.6, heart rate was 60, respiration 20, O2 sat 98, blood pressure 170/93. Initial white count 5.4. Hemoglobin 12.2. Creatinine 0.8. Urinalysis is negative. Chest x-ray showed bibasilar infiltrates. CTA showed no pulmonary embolism, airspace disease consolidation mainly in the right lower lobe with reactive right hilar lymphadenopathy. Microbiology: Blood cultures: 04/06 neg Urine cultures: 04/06 neg Influenza: neg GAS: neg Current Antimicrobials: Zosyn Vancomycin Previous Antimicrobials: Past History Past Medical History: hypertension, other (lupus) Past Surgical History: No surgical history Social history: no significant social history Medications and Allergies Allergies Allergy/AdvReac Type Severity Reaction Status Date / Time No Known Allergies Allergy Verified 04/06/17 21:57 Home Medications Medication Instructions Recorded Confirmed Last Taken Type Lisinopril/Hydrochlorothiazide 04/06/17 Unknown History Active Meds: Active Medications Acetaminophen (Tylenol) 650 mg PO Q4H PRN PRN Reason: Pain MILD(1-3)/Fever >100.5/[place] Last Admin: 04/10/17 11:34 Dose: 650 mg Albuterol/Ipratropium (Duoneb *Not For Prn Use*) 1 ampul IH Q6HRT [facility] Last Admin: 04/10/17 07:32 Dose: 1 ampul Bisacodyl (Dulcolax) 10 mg IA QDAY PRN PRN Reason: Constipation unrelieved by MOM Enoxaparin Sodium (Lovenox) 40 mg SUB-Q QDAY [facility] Last Admin: 04/10/17 11:30 Dose: 40 mg Sodium Chloride (Nacl 0.9% 1000 Ml) 1,000 mls @ 150 mls/hr IV DIRECT [facility] Last Admin: 04/10/17 12:31 Dose: 150 mls/hr Piperacillin Sod/Tazobactam Sod (Zosyn/Ns 4.5gm/100ml) 4.5 gm in 100 mls @ 200 mls/hr IV Q8HR [facility] PRN Reason: Protocol Last Admin: 04/10/17 05:42 Dose: 200 mls/hr Vancomycin HCl 1,500 mg/ (Sodium Chloride) 515 mls @ 333.333 mls/hr IV Q12HR [facility] Lisinopril (Zestril) 20 mg PO QDAY [facility] Last Admin: 04/10/17 11:29 Dose: 20 mg Magnesium Hydroxide (Milk Of Magnesia) 30 ml PO Q4H PRN PRN Reason: Constipation Morphine Sulfate (Morphine) 2 mg IV Q4H PRN PRN Reason: Pain, Moderate (4-6) Ondansetron HCl (Zofran) 4 mg IV Q8H PRN PRN Reason: N/V unrelieved by Reglan Last Admin: 04/10/17 11:35 Dose: 4 mg Oxycodone/Acetaminophen (Percocet 5/325) 1 tab PO Q6H PRN PRN Reason: Pain, Moderate (4-6) Pseudoephedrine/Acetam/Chlorphenir (Robitussin Ac) 10 ml PO Q4H PRN PRN Reason: Cough Last Admin: 04/10/17 11:34 Dose: 10 ml Vancomycin HCl (Vancomycin Pharmacy To Dose) 1 each IV PKCONSULT LUCAS PRN Reason: Protocol Zolpidem Tartrate (Ambien) 5 mg PO QHS PRN PRN Reason: Insomnia Review of Systems All systems: negative (as per HPI rest neg) Physical Examination - Physical Exam Narrative exam: General appearance: Alert in NAD, conversant Eyes: anicteric sclerae, moist conjunctivae; no lid-lag; PERRLA HENT: Atraumatic; oropharynx clear Neck: Trachea midline; supple, no thyromegaly or lymphadenopathy Lungs: bibasilar crackles + right egophony CV: RRR Abdomen: Soft, non-tender; no masses or hepatosplenomegaly Extremities: No peripheral edema or extremity lymphadenopathy Skin: Normal temperature, turgor and texture; no rash, ulcers or subcutaneous nodules Psych: Appropriate affect, alert and oriented to person, place and time. Neuro: alert and oriented x 3. Moving all extermities Lines: No CVL / PICC - Constitutional Vitals: Vital Signs Temp Pulse Resp BP Pulse Ox 98.6 F 81 22 130/76 97 04/10/17 08:13 04/10/17 08:13 04/10/17 08:13 04/10/17 11:29 04/10/17 08:13 Temperature -Last 24 Hours Temperature 98.6 F Temperature 98.6 F Temperature 100.1 F Temperature 99 F Temperature 99.6 F Temperature 100.6 F Results - Labs CBC & Chem 7: 04/10/17 05:29 04/08/17 05:16 Labs: Abnormal lab results 04/10/17 Range/Units 05:29 WBC 3.6 L (4.5-11.0) K/mm3 RBC 3.17 L (3.65-5.03) M/mm3 Hgb 9.8 L (10.1-14.3) gm/dl Hct 29.1 L (30.3-42.9) % Plt Count 135 L (140-440) K/mm3 Assessment and Plan Assessment: 1) Sepsis: Present on admission, manifested by fever, tachycardia, leukocytosis. Etiology most likely pneumonia. 2) CAP vs aspiration: -Chest x-ray showed bibasilar infiltrates. -CTA showed no pulmonary embolism, airspace disease consolidation mainly in the right lower lobe with reactive right hilar lymphadenopathy. 3) Lupus 4) Hypertension Plan: -follow-up blood cultures -obtain respiratory cultures, C-reactive protein (CRP), C3, C4 -check Legionella urine antigen, Streptococcus pneumoniae urine antigen -continue zosyn and vanco for now - will stop vanco soon -add levaquin to cover atypicals -monitor fever -if better ok to d/c on levaquin total [address] Johnson for your consultation, will follow up with you. Cara Aguilar MD Infectious Diseases Specialist [facility] M [phone] O [phone]
--- NOTE | 2017-04-10 15:15 | Progress Note ---
Assessment and Plan Assessment and plan: 57-year-old -[place] female with past medical history of lupus and hypertension comes in for fever of 2 days' duration. Fever associated with cough. Some wheezing. Cough productive of mucoid sputum. Some body aches present. Fever as high as 102 F. No exacerbating or relieving factors. (1) Sepsis Clinical picture c/w Spesis. Continue IVF Adjust abx, ID consult (2) Pneumonia likely gram negative Continue Zosyn and vancomycin. Also Duonebs 6 hours when necessary IV fluids, follow-up blood cultures Per ID obtain respiratory cultures, C-reactive protein (CRP), C3, C4, check Legionella urine antigen, Streptococcus pneumoniae urine antigen Anticipate discharge in am on levaquin total 7 days (3) COPD (chronic obstructive pulmonary disease) Patient initiated on DuoNeb every 6 hours around the clock (4) Lupus not on any medications. May benefit from plaquenil. Once infection controlled. (5) Hypertension continue lisinopril (6) Elevated D dimer R/O DVT. (7) DVT prophylaxis on Lovenox. Encouraged ambulation. Discussed with patient and Case management and Nursing staff History Interval history: Patient seen and examined, still with cough, low grade fever last night, continues to notice gradual improvement Hospitalist Physical - Physical exam Narrative exam: VITAL SIGNS: Reviewed. GENERAL: The patient appeared well nourished and normally developed. Vital signs as documented. HEAD: No signs of head trauma. EYES: Pupils are equal. Extraocular motions intact. EARS: Hearing grossly intact. MOUTH: Oropharynx is normal. NECK: No adenopathy, no JVD. CHEST: Chest with crackles breath sounds bilaterally. No wheezes, rales, or rhonchi. CARDIAC: Regular rate and rhythm. S1 and S2, without murmurs, gallops, or rubs. VASCULAR: No Edema. Peripheral pulses normal and equal in all extremities. ABDOMEN: Soft, without detectable tenderness. No sign of distention. No rebound or guarding, and no masses palpated. Bowel Sounds normal. MUSCULOSKELETAL: Good range of motion of all major joints. Extremities without clubbing, cyanosis or edema. NEUROLOGIC EXAM: Awake, lathergic and oriented x 3. No focal sensory or strength deficits. Speech normal. Follows commands. PSYCHIATRIC: Mood normal. SKIN: No rash or lesions. - Constitutional Vitals: Temp Pulse Resp BP Pulse Ox 98.6 F 84 18 130/76 97 04/10/17 08:13 04/10/17 13:29 04/10/17 13:29 04/10/17 11:29 04/10/17 08:13 General appearance: Present: mild distress, well-nourished Results - Labs CBC & Chem 7: 04/10/17 05:29 04/08/17 05:16 Labs: Laboratory Last Values WBC 3.6 K/mm3 (4.5-11.0) L 04/10/17 05:29 RBC 3.17 M/mm3 (3.65-5.03) L 04/10/17 05:29 Hgb 9.8 gm/dl (10.1-14.3) L 04/10/17 05:29 Hct 29.1 % (30.3-42.9) L 04/10/17 05:29 MCV 92 fl (79-97) 04/10/17 05:29 MCH 31 pg (28-32) 04/10/17 05:29 MCHC 34 % (30-34) 04/10/17 05:29 RDW 13.7 % (13.2-15.2) 04/10/17 05:29 Plt Count 135 K/mm3 (140-440) L 04/10/17 05:29 Lymph % (Auto) 22.0 % (13.4-35.0) 04/07/17 06:43 [place] % (Auto) 11.9 % (0.0-7.3) H 04/07/17 06:43 Eos % (Auto) 0.2 % (0.0-4.3) 04/07/17 06:43 Baso % (Auto) 1.5 % (0.0-1.8) 04/07/17 06:43 Lymph # 0.7 K/mm3 (1.2-5.4) L 04/07/17 06:43 [place] # 0.4 K/mm3 (0.0-0.8) 04/07/17 06:43 Eos # 0.0 K/mm3 (0.0-0.4) 04/07/17 06:43 Baso # 0.1 K/mm3 (0.0-0.1) 04/07/17 06:43 Seg Neutrophils % 64.4 % (40.0-70.0) 04/07/17 06:43 Seg Neutrophils # 2.1 K/mm3 (1.8-7.7) 04/07/17 06:43 PT 14.3 Sec. (12.2-14.9) 04/06/17 20:38 INR 1.06 (0.87-1.13) 04/06/17 20:38 D-Dimer 607.63 ng/mlDDU (0-234) H 04/06/17 20:38 Sodium 142 mmol/L (137-145) 04/08/17 05:16 Potassium 3.7 mmol/L (3.6-5.0) 04/08/17 05:16 Chloride 105.7 mmol/L (98-107) 04/08/17 05:16 Carbon Dioxide 21 mmol/L (22-30) L 04/08/17 05:16 Anion Gap 19 mmol/L 04/08/17 05:16 BUN 7 mg/dL (7-17) 04/08/17 05:16 Creatinine 0.8 mg/dL (0.7-1.2) 04/08/17 05:16 Estimated GFR > 60 ml/min 04/08/17 05:16 BUN/Creatinine Ratio 9 % 04/08/17 05:16 Glucose 96 mg/dL (65-100) 04/08/17 05:16 Hemoglobin A1c 5.0 % (4-6) 04/06/17 22:57 Lactic Acid 0.70 mmol/L (0.7-2.0) 04/06/17 22:53 Calcium 7.7 mg/dL (8.4-10.2) L 04/08/17 05:16 Total Bilirubin 0.70 mg/dL (0.1-1.2) 04/07/17 06:43 Direct Bilirubin < 0.2 mg/dL (0-0.2) 04/06/17 20:38 Indirect Bilirubin 0.6 mg/dL 04/06/17 20:38 AST 26 units/L (5-40) 04/07/17 06:43 ALT 35 units/L (7-56) 04/07/17 06:43 Alkaline Phosphatase 59 units/L (35-129) 04/07/17 06:43 C-Reactive Protein 4.30 mg/dL (0.00-1.30) H 04/10/17 13:42 Total Protein 7.2 g/dL (6.3-8.2) 04/07/17 06:43 Albumin 3.6 g/dL (3.9-5) L 04/07/17 06:43 Albumin/Globulin Ratio 1.0 % 04/07/17 06:43 Lipase 30 units/L (13-60) 04/06/17 20:38 Urine Color Straw (Yellow) 04/06/17 20:30 Urine Turbidity Clear (Clear) 04/06/17 20:30 Urine pH 6.0 (5.0-7.0) 04/06/17 20:30 Ur Specific [place] 1.004 (1.003-1.030) 04/06/17 20:30 Urine Protein <15 mg/dl mg/dL (Negative) 04/06/17 20:30 Urine Glucose (UA) Neg mg/dL (Negative) 04/06/17 20:30 Urine Ketones Neg mg/dL (Negative) 04/06/17 20:30 Urine Blood Sm (Negative) 04/06/17 20:30 Urine Nitrite Neg (Negative) 04/06/17 20:30 Urine Bilirubin Neg (Negative) 04/06/17 20:30 Urine Urobilinogen < 2.0 mg/dL (<2.0) 04/06/17 20:30 Ur Leukocyte Esterase Tr (Negative) 04/06/17 20:30 Urine WBC (Auto) 1.0 /HPF (0.0-6.0) 04/06/17 20:30 Urine RBC (Auto) 4.0 /HPF (0.0-6.0) 04/06/17 20:30 U Epithel Cells (Auto) 1.0 /HPF (0-13.0) 04/06/17 20:30 Urine Bacteria (Auto) 1+ /HPF (Negative) 04/06/17 20:30 Urine Mucus Few /HPF 04/06/17 20:30 Vancomycin Trough 10.0 ug/mL (5.0-20.0) 04/10/17 08:30
[2017-04-10] MEDS: LEVAQUIN 750MG/150ML 750 MG/150 ML BAG IV SCH (16:10)
[2017-04-10] MEDS: VANCOMYCIN 1,500 MG in NACL 0.9% 500 ML 500 ML IV SCH (23:30)
[2017-04-11] MEDS: DUONEB *Not for PRN Use IH SCH ×3 (02:20→14:36)
[2017-04-11] MEDS: ZOSYN/NS 4.5GM/100ML 4.5 GM/100 ML VIAL IV SCH ×2 (06:50→14:00)
[2017-04-11 08:52] VITALS: BP 172/87
[2017-04-11] MEDS: ZESTRIL PO SCH (10:01)
[2017-04-11] MEDS: LOVENOX SUB-Q SCH (10:01)
[2017-04-11] MEDS: VANCOMYCIN 1,500 MG in NACL 0.9% 500 ML 500 ML IV SCH (10:39)
--- NOTE | 2017-04-11 10:49 | Discharge Summary ---
Providers - Providers Date of Admission: 04/06/17 22:47 Attending physician: MIRELLA VAUGHN MD 04/09/17 13:11 Consult to Physician [CONS] Routine Consulting Provider: JORDAN NOVOA Reason For Exam: sepsis secondary to PNA Place consult to:: Dr Pizarro Notified:: [phone] Phone number called:: yes Was contact made?: Yes If yes, spoke with:: DR Pizarro Time called:: 14:51 Primary care physician: FRUIT CUTTER Hospitalization Reason for admission: SEPSIS Condition: Stable Hospital course: 57-year-old -[place]og[place] female with past medical history of lupus and hypertension comes in for fever of 2 days' duration. Fever associated with cough. Some wheezing. Cough productive of mucoid sputum. Some body aches present. Fever as high as 102 F. No exacerbating or relieving factors. She had the pneumonia vaccine 5 years ago. She reports nausea and some vomiting. Denies history of MRSA colonization. Chest x-ray showed bibasilar infiltrates. CTA showed no pulmonary embolism, airspace disease consolidation mainly in the right lower lobe with reactive right hilar lymphadenopathy. Pateint was treated with IV Vancomycin and zosyn with cultures for C-reactive protein (CRP), C3, C4 , check Legionella urine antigen, Streptococcus pneumoniae urine antigen, she is much improved today and stable for discharge. I have recommended rest, hydration and abx for about 7 days. she is to follow PCP. (1) Sepsis (2) Pneumonia likely gram negative-Culture negative. (3) COPD (chronic obstructive pulmonary disease) (4) Lupus (5) Hypertension (6) Elevated D dimer Disposition: TO HOME OR SELFCARE Time spent for discharge: 35 MINS Core Measure Documentation - Palliative Care Palliative Care/ Comfort Measures: Not Applicable - Core Measures Any of the following diagnoses?: none - VTE Discharge Requirements Deep Vein Thrombosis/Pulmonary Embolism Present on Admission: No Exam - Physical Exam Narrative exam: VITAL SIGNS: Reviewed. GENERAL: The patient appeared well nourished and normally developed. Vital signs as documented. HEAD: No signs of head trauma. EYES: Pupils are equal. Extraocular motions intact. EARS: Hearing grossly intact. MOUTH: Oropharynx is normal. NECK: No adenopathy, no JVD. CHEST: Chest with Diminshed breath sounds bilaterally. No wheezes, rales, or rhonchi. CARDIAC: Regular rate and rhythm. S1 and S2, without murmurs, gallops, or rubs. VASCULAR: No Edema. Peripheral pulses normal and equal in all extremities. ABDOMEN: Soft, without detectable tenderness. No sign of distention. No rebound or guarding, and no masses palpated. Bowel Sounds normal. MUSCULOSKELETAL: Good range of motion of all major joints. Extremities without clubbing, cyanosis or edema. NEUROLOGIC EXAM: Awake, lathergic and oriented x 3. No focal sensory or strength deficits. Speech normal. Follows commands. PSYCHIATRIC: Mood normal. SKIN: No rash or lesions. - Constitutional Vitals: Temp Pulse Resp BP Pulse Ox 98.8 F 83 20 172/87 95 04/11/17 08:20 04/11/17 10:01 04/11/17 08:20 04/11/17 10:01 04/11/17 08:20 Plan Activity: advance as tolerated, fall precautions Diet: regular Special Instructions: record daily BP diary Durable Medical Equipment Needed Upon Discharge: Hospital Bed, Nebulizer Follow up with: PRIMARY CARE, [Primary Care Provider] - 3-5 Days Prescriptions: ALBUTEROL Inhaler [ProAir HFA Inhaler] 2 puff IH QID PRN 30 Days inhalation PRN Reason: Shortness Of Breath guaiFENesin/CODEINE [Robitussin AC] 10 ml PO Q4H PRN 28 Days oral.liqd PRN Reason: Cough Ipratropium/Albuterol Sulfate [DUONEB *Not for PRN Use*] 1 ampul IH Q6HRT #30 ampul.neb Levofloxacin [Levaquin] 750 mg PO QDAY #7 tablet traMADol [Ultram] 50 mg PO Q6HR PRN #14 tablet PRN Reason: Pain
--- NOTE | 2017-04-11 11:15 | Progress Note ---
Assessment and Plan Assessment: 1) Sepsis: resolved. Etiology most likely pneumonia. CRP=4.3 2) CAP vs aspiration: -Chest x-ray showed bibasilar infiltrates. -CTA showed no pulmonary embolism, airspace disease consolidation mainly in the right lower lobe with reactive right hilar lymphadenopathy. 3) Lupus 4) Hypertension Plan: -follow-up Legionella urine antigen, Streptococcus pneumoniae urine antigen -upon discharge continue levaquin 750 mg PO qday total [address] Johnson for your consultation, will follow up with you. Cara Aguilar MD Infectious Diseases Specialist [facility] ([facility]) M [phone] O [phone] Subjective Date of service: 04/11/17 Principal diagnosis: pneumonia Interval history: Feels better, fever resolved. Minimal cough. Microbiology: Blood cultures: 04/06 neg Urine cultures: 04/06 neg Influenza: neg GAS: neg Current Antimicrobials: Zosyn Vancomycin Levaquin Previous Antimicrobials: Objective - Exam Narrative Exam: General appearance: Alert in NAD, conversant Eyes: anicteric sclerae, moist conjunctivae; no lid-lag; PERRLA HENT: Atraumatic; oropharynx clear Neck: Trachea midline; supple, no thyromegaly or lymphadenopathy Lungs: bibasilar crackles + right egophony CV: RRR Abdomen: Soft, non-tender; no masses or hepatosplenomegaly Extremities: No peripheral edema or extremity lymphadenopathy Skin: Normal temperature, turgor and texture; no rash, ulcers or subcutaneous nodules Psych: Appropriate affect, alert and oriented to person, place and time. Neuro: alert and oriented x 3. Moving all extermities Lines: No CVL / PICC - Constitutional Vitals: Vital Signs Temp Pulse Resp BP Pulse Ox 98.8 F 83 20 172/87 95 04/11/17 08:20 04/11/17 10:01 04/11/17 08:20 04/11/17 10:01 04/11/17 08:20 Temperature -Last 24 Hours Temperature 98.8 F Temperature 98.4 F Temperature 98.7 F - Labs CBC & Chem 7: 04/10/17 05:29 04/08/17 05:16 Labs: Abnormal lab results 04/10/17 Range/Units 13:42 C-Reactive Protein 4.30 H (0.00-1.30) mg/dL
[2017-04-11] MEDS: LEVAQUIN 750MG/150ML 750 MG/150 ML BAG IV SCH (15:00)
== END 2017-04-11 14:00 | disposition home or self-care (01) | DRG 871 ==
LOC: ED 15:58 → 3A 22:47
PROVIDERS: ADMIT Internal Medicine; ATTEND Internal Medicine
DX: A41.9 Sepsis, unspecified organism (principal); J18.9 Pneumonia, unspecified organism; J44.0 Chronic obstructive pulmonary disease with (acute) lower respiratory infection; M32.9 Systemic lupus erythematosus, unspecified; I10 Essential (primary) hypertension; Z87.891 Personal history of nicotine dependence
CPT/HCPCS: 36415; 71020; 71275; 80048; 80053; 80074; 80202; 81001; 82140; 83036; 83690; 85025; 85027; 85379; 85610; 86140; 86160; 87040; 87086; 87116; 87400; 87430; 93005; 93010; 93970; 94640; 94667; 96374; J0456; J0696; J1650; J1956; J2270; J2405; J2543; J3370; J7030; J7040; J7042; J7050; Q9967

== ENCOUNTER 2018-12-11 08:30 | Observation (INO) | payer BC, OTHER ==
[2018-12-11 08:57] LABS: Eosinophils # (Auto) 0.3 K/mm3 (0.0-0.4); Eosinophils % (Auto) 5.3 % (0.0-4.3); Hematocrit 38.1 % (30.3-42.9); Hemoglobin 12.7 gm/dl (10.1-14.3); Lymphocytes # (Auto) 1.8 K/mm3 (1.2-5.4); Lymphocytes % (Auto) 37.1 % (13.4-35.0); Mean Corpuscular HGB Conc 33 % (30-34); Mean Corpuscular Volume 92 fl (79-97); Monocytes # (Auto) 0.6 K/mm3 (0.0-0.8); Monocytes % (Auto) 11.3 % (0.0-7.3); Platelet Count 260 K/mm3 (140-440); Red Blood Count 4.13 M/mm3 (3.65-5.03); Red Cell Distribution Width 13.8 % (13.2-15.2)
[2018-12-11 09:13] LABS: BUN/Creatinine Ratio 19; Blood Urea Nitrogen 17 mg/dL (7-17); Calcium 9.8 mg/dL (8.4-10.2); Hemolysis Index 71
[2018-12-11] MEDS ORDERED: MAXIPIME/NS 2 GM/100 ML 2 GM/100 ML BAG IV ONE (09:19)
[2018-12-11] MEDS ORDERED: MAGNESIUM SULFATE 2GM/50ML 2 GM/50 ML BAG IV ONE (09:19)
[2018-12-11] MEDS ORDERED: DUONEB *Not for PRN Use IH ONE ×2 (09:19→11:15)
[2018-12-11] MEDS ORDERED: SOLU-Medrol IV ONE (09:19)
--- NOTE | 2018-12-11 09:19 | Emergency Department Report ---
ED Shortness of Breath HPI - General Chief Complaint: Adult Asthma Stated Complaint: ASTHMA Time Seen by Provider: 12/11/18 09:10 Source: patient Mode of arrival: Ambulatory Limitations: No Limitations - History of Present Illness Initial Comments: She is a 58-year-old female in Emergency room with complaints of difficulty breathing that started last night. Patient states using her inhaler with no relief. Patient states she has a COPD but she has a prescription inhaler from a previous bout of bronchitis. Patient states that she is short of breath and feels like she is working hard to breathe. Patient denies chest pain. Patient denies fever or chills. Patient also complains of wheezing and cough. Patient states the albuterol is helping. Patient states her symptoms are better with rest and worse with exertion. MD Complaint: shortness of breath, cough -: Sudden Severity: severe Improves With: rest Worsens With: exertion, coughing, inspiration Known History Of: COPD Context: recent URI Associated Symptoms: cough Treatments Prior to Arrival: none - Related Data Home Oxygen Therapy: No Home Medications Medication Instructions Recorded Confirmed Last Taken Losartan [Cozaar] 25 mg PO QDAY 12/11/18 12/11/18 12/10/18 Allergies Allergy/AdvReac Type Severity Reaction Status Date / Time No Known Allergies Allergy Verified 12/11/18 08:31 ED Review of Systems ROS: Stated complaint: ASTHMA Other details as noted in HPI Constitutional: denies: chills, fever Eyes: denies: eye pain, eye discharge, vision change ENT: denies: ear pain, throat pain Respiratory: cough, shortness of breath, wheezing Cardiovascular: denies: chest pain, palpitations Endocrine: no symptoms reported Gastrointestinal: denies: abdominal pain, nausea, diarrhea Genitourinary: denies: urgency, dysuria, discharge Musculoskeletal: denies: back pain, joint swelling, arthralgia Skin: denies: rash, lesions Neurological: denies: headache, weakness, paresthesias Psychiatric: denies: anxiety, depression Hematological/Lymphatic: denies: easy bleeding, easy bruising ED Past Medical Hx - Past Medical History Previous Medical History?: Yes Hx Hypertension: Yes Hx Arthritis: Yes (shoulders/hands) Hx HIV: No Additional medical history: Lupus - Surgical History Past Surgical History?: No - Family History Family history: no significant - Social History Smoking Status: Never Smoker Substance Use Type: None - Medications Home Medications: Home Medications Medication Instructions Recorded Confirmed Last Taken Type Losartan [Cozaar] 25 mg PO QDAY 12/11/18 12/11/18 12/10/18 History ED Physical Exam - General Limitations: No Limitations General appearance: alert, in distress - Head Head exam: Present: atraumatic, normocephalic - Eye Eye exam: Present: normal appearance - ENT ENT exam: Present: mucous membranes moist - Neck Neck exam: Present: normal inspection - Respiratory Respiratory exam: Present: respiratory distress, wheezes, rhonchi - Cardiovascular Cardiovascular Exam: Present: regular rate, normal rhythm. Absent: systolic murmur, diastolic murmur, rubs, gallop - GI/Abdominal GI/Abdominal exam: Present: soft, normal bowel sounds. Absent: distended, tenderness - Extremities Exam Extremities exam: Present: normal inspection - Back Exam Back exam: Present: normal inspection - Neurological Exam Neurological exam: Present: alert, oriented X3 - Psychiatric Psychiatric exam: Present: normal affect, normal mood - Skin Skin exam: Present: warm, dry, intact, normal color. Absent: rash ED Course Vital Signs 12/11/18 12/11/18 12/11/18 08:36 09:10 09:12 Temperature 97.9 F 97.9 F Pulse Rate 107 H 95 H 100 H Pulse Rate [ Anterior Bilateral Throughout] Respiratory 24 27 H Rate Respiratory Rate [Anterior Bilateral Throughout] Blood Pressure 190/98 Blood Pressure 174/93 [Right] O2 Sat by Pulse 96 98 99 Oximetry 12/11/18 12/11/18 12/11/18 09:16 09:30 09:46 Temperature Pulse Rate 92 H 93 H 99 H Pulse Rate [ Anterior Bilateral Throughout] Respiratory 24 23 30 H Rate Respiratory Rate [Anterior Bilateral Throughout] Blood Pressure 174/93 174/93 174/93 Blood Pressure [Right] O2 Sat by Pulse 99 98 97 Oximetry 12/11/18 12/11/18 12/11/18 10:00 10:15 10:24 Temperature Pulse Rate 92 H 91 H Pulse Rate [ 84 Anterior Bilateral Throughout] Respiratory 28 H 29 H Rate Respiratory 14 Rate [Anterior Bilateral Throughout] Blood Pressure 185/94 185/94 Blood Pressure [Right] O2 Sat by Pulse 97 97 Oximetry 12/11/18 12/11/18 12/11/18 10:31 10:45 11:00 Temperature Pulse Rate 103 H 93 H 91 H Pulse Rate [ Anterior Bilateral Throughout] Respiratory 14 19 21 Rate Respiratory Rate [Anterior Bilateral Throughout] Blood Pressure 185/94 185/94 169/78 Blood Pressure [Right] O2 Sat by Pulse 100 95 96 Oximetry 12/11/18 12/11/18 12/11/18 11:18 11:31 12:31 Temperature Pulse Rate 102 H 96 H Pulse Rate [ 95 H Anterior Bilateral Throughout] Respiratory 24 20 Rate Respiratory 14 Rate [Anterior Bilateral Throughout] Blood Pressure 169/78 186/89 Blood Pressure [Right] O2 Sat by Pulse 92 94 Oximetry - Reevaluation(s) Reevaluation #1: Initial evaluation done. Patient found to have rhonchi and wheezes. Patient will be given magnesium, DuoNeb and Medrol. 12/11/18 09:19 Reevaluation #2: She was initially hypoxic and patient's oxygen has improved. Patient is still on 2 L and is satting 95%. Patient's states she is feeling a little bit better. Patient is still wheezing. Patient will be given another DuoNeb. I discussed all results with patient. I discussed plan of care outpatient. Patient agrees plan of care and admission. Patient will be admitted to the hospitalist service. 12/11/18 11:12 - Consultations Consultation #1: Hospitalist consult for admission. Hospitalist to admit patient. Bridge orders placed 12/11/18 11:13 ED Medical Decision Making - Lab Data Result diagrams: 12/11/18 08:44 12/11/18 08:44 - Radiology Data Radiology results: report reviewed, image reviewed CHEST 1 VIEW INDICATION / CLINICAL INFORMATION: Chest Pain. COMPARISON: 04/06/2017 FINDINGS: SUPPORT DEVICES: None. HEART / MEDIASTINUM: No significant abnormality. LUNGS / PLEURA: No significant pulmonary or pleural abnormality. No pneum othorax. ADDITIONAL FINDINGS: No significant additional findings. IMPRESSION: 1. No significant change - Medical Decision Making Patient is a 58-year-old female that presents emergency room with complaints of shortness of breath and difficulty breathing. Patient has a history of COPD. Patient hypoxic. Patient given multiple medications and her respiratory sympto ms improved. Patient's chest x-ray negative per patient will be admitted to the hospitalist service. Patient's labs unremarkable. - Differential Diagnosis shortness of breath. copd. hypoxia. Critical Care Time: Yes Critical care attestation.: If time is entered above; I have spent that time in minutes in the direct care of this critically ill patient, excluding procedure time. Critical Care Time: 35 minutes ED Disposition Clinical Impression: SOB (shortness of breath), Hypoxia, Cough, Difficulty breathing, COPD exacerbation COPD (chronic obstructive pulmonary disease) Qualifiers: COPD type: unspecified COPD Qualified Code(s): J44.9 - Chronic obstructive pulmonary disease, unspecified Disposition: 09 OP ADMIT IP TO THIS HOSP Is pt being admited?: Yes Does the pt Need Aspirin: No Condition: Critical Time of Disposition: 11:14
--- NOTE | 2018-12-11 09:27 | XRay Report ---
CHEST 1 VIEW INDICATION / CLINICAL INFORMATION: Chest Pain. COMPARISON: 04/06/2017 FINDINGS: SUPPORT DEVICES: None. HEART / MEDIASTINUM: No significant abnormality. LUNGS / PLEURA: No significant pulmonary or pleural abnormality. No pneumothorax. ADDITIONAL FINDINGS: No significant additional findings. IMPRESSION: 1. No significant change Signer Name: Gigi Su MD Signed: 12/11/2018 9:22 AM Workstation Name: [id number]
--- NOTE | 2018-12-11 18:36 | History and Physical Report ---
History of Present Illness Date of examination: 12/11/18 Date of admission: 12/11/18 11:55 Medications and Allergies Allergies Allergy/AdvReac Type Severity Reaction Status Date / Time No Known Allergies Allergy Verified 12/11/18 08:31 Home Medications Medication Instructions Recorded Confirmed Last Taken Type Losartan [Cozaar] 25 mg PO QDAY 12/11/18 12/11/18 12/10/18 History Active Meds: Active Medications Pneumococcal Polyvalent Vaccine (Pneumovax 23) 0.5 ml IM .ONCE ONE Stop: 12/12/18 12:01 Exam - Constitutional Vitals: Temp Pulse Resp BP Pulse Ox 98.8 F 94 H 20 168/77 95 12/11/18 15:17 12/11/18 15:17 12/11/18 15:17 12/11/18 15:17 12/11/18 15:17 Results - Labs CBC & Chem 7: 12/11/18 08:44 12/11/18 08:44 Labs: Laboratory Last Values WBC 4.9 K/mm3 (4.5-11.0) 12/11/18 08:44 RBC 4.13 M/mm3 (3.65-5.03) 12/11/18 08:44 Hgb 12.7 gm/dl (10.1-14.3) 12/11/18 08:44 Hct 38.1 % (30.3-42.9) 12/11/18 08:44 MCV 92 fl (79-97) 12/11/18 08:44 MCH 31 pg (28-32) 12/11/18 08:44 MCHC 33 % (30-34) 12/11/18 08:44 RDW 13.8 % (13.2-15.2) 12/11/18 08:44 Plt Count 260 K/mm3 (140-440) 12/11/18 08:44 Lymph % (Auto) 37.1 % (13.4-35.0) H 12/11/18 08:44 [place] % (Auto) 11.3 % (0.0-7.3) H 12/11/18 08:44 Eos % (Auto) 5.3 % (0.0-4.3) H 12/11/18 08:44 Baso % (Auto) 1.0 % (0.0-1.8) 12/11/18 08:44 Lymph # 1.8 K/mm3 (1.2-5.4) 12/11/18 08:44 [place] # 0.6 K/mm3 (0.0-0.8) 12/11/18 08:44 Eos # 0.3 K/mm3 (0.0-0.4) 12/11/18 08:44 Baso # 0.0 K/mm3 (0.0-0.1) 12/11/18 08:44 Seg Neutrophils % 45.3 % (40.0-70.0) 12/11/18 08:44 Seg Neutrophils # 2.2 K/mm3 (1.8-7.7) 12/11/18 08:44 Sodium 142 mmol/L (137-145) 12/11/18 08:44 Potassium 4.8 mmol/L (3.6-5.0) 12/11/18 08:44 Chloride 103.5 mmol/L (98-107) 12/11/18 08:44 Carbon Dioxide 25 mmol/L (22-30) 12/11/18 08:44 18 mmol/L 12/11/18 08:44 BUN 17 mg/dL (7-17) 12/11/18 08:44 0.9 mg/dL (0.7-1.2) 12/11/18 08:44 Estimated GFR > 60 ml/min 12/11/18 08:44 19 % 12/11/18 08:44 Glucose 108 mg/dL (65-100) H 12/11/18 08:44 Calcium 9.8 mg/dL (8.4-10.2) 12/11/18 08:44 < 0.010 ng/mL (0.00-0.029) 12/11/18 14:35
[2018-12-11] MEDS ORDERED: SODIUM CHLORIDE FLUSH SYRINGE 10 ML IV PRN (18:37)
[2018-12-11] MEDS ORDERED: DILAUDID IV PRN (18:37)
[2018-12-11] MEDS ORDERED: PERCOCET 5/325 PO PRN (18:37)
[2018-12-11] MEDS ORDERED: TYLENOL PO PRN (18:37)
[2018-12-11] MEDS ORDERED: ZOFRAN IV PRN (18:37)
[2018-12-11] MEDS ORDERED: REGLAN IV PRN (18:37)
[2018-12-11] MEDS ORDERED: PROVENTIL IH PRN (18:38)
[2018-12-11] MEDS: DUONEB *Not for PRN Use IH SCH (20:13)
[2018-12-11] MEDS: SOLU-Medrol IV SCH (21:56)
[2018-12-11] MEDS: PEPCID PO SCH (21:57)
[2018-12-11] MEDS: LEVAQUIN 750MG/150ML 750 MG/150 ML BAG IV SCH (21:58)
[2018-12-11] MEDS: SODIUM CHLORIDE FLUSH SYRINGE 10 ML IV SCH (21:59)
[2018-12-12 04:33] LABS: Hematocrit 36.9 % (30.3-42.9); Hemoglobin 12.7 gm/dl (10.1-14.3); Mean Corpuscular HGB Conc 34 % (30-34); Mean Corpuscular Volume 91 fl (79-97); Platelet Count 277 K/mm3 (140-440); Red Blood Count 4.04 M/mm3 (3.65-5.03); Red Cell Distribution Width 13.5 % (13.2-15.2)
[2018-12-12 04:56] LABS: Alanine Aminotransferase 10 units/L (7-56); Albumin 4.3 g/dL (3.9-5); BUN/Creatinine Ratio 20; Blood Urea Nitrogen 16 mg/dL (7-17); Calcium 9.8 mg/dL (8.4-10.2); Hemolysis Index 17
[2018-12-12 05:13] LABS: Basophils % (Manual) 0 % (0.0-1.8); Eosinophils % (Manual) 0 % (0.0-4.3); Monocytes % (Manual) 0 % (0.0-7.3); Platelet Estimate Consistent w Auto; RBC Morphology Normal; Total Cells Counted 100
[2018-12-12] MEDS: SOLU-Medrol IV SCH ×2 (06:07→14:13)
--- NOTE | 2018-12-12 07:20 | Event Note ---
Date: 12/11/18 See H/p in reports Copd exacrbation
[2018-12-12] MEDS: DUONEB *Not for PRN Use IH SCH ×2 (07:22→11:23)
--- NOTE | 2018-12-12 07:33 | History and Physical Report ---
CHIEF COMPLAINT: Increasing shortness of breath and wheezing for 2 days. HISTORY OF PRESENT ILLNESS: A 58-year-old female who comes into the Emergency Room for severe shortness of breath since last night. The patient is using her inhaler with no relief. Cough productive of mucoid sputum. The patient was treated for bronchitis recently. The patient is not responding to bronchodilators at home. No fever or chills. No exacerbating or relieving factors. PAST MEDICAL HISTORY: Significant for: 1. COPD/asthma. 2. Lupus. 3. Arthritis. 4. Hypertension. PAST SURGICAL HISTORY: None. FAMILY HISTORY: No significant family history. SOCIAL HISTORY: Does not smoke. REVIEW OF SYSTEMS: Significant for increasing shortness of breath and wheezing. Otherwise, review of systems negative. PHYSICAL EXAMINATION: GENERAL: Young elderly female, cooperative during the examination. VITAL SIGNS: Blood pressure is 176/86, temperature 97.9, pulse is 100, respirations are 18. HEENT: Unremarkable. Pupils equal and reactive. NECK: Supple, no lymphadenopathy, no thyromegaly. LUNGS: Diminished air entry. Bilateral inspiratory and expiratory rhonchi present. CARDIOVASCULAR SYSTEM: S1, S2 heard. No gallop, no murmur, no rub. Apical impulse in left fifth intercostal space and midclavicular line. ABDOMEN: Soft and benign. No hepatosplenomegaly. No guarding, no rigidity. Hernial orifices are normal. EXTREMITIES: Good pedal pulses. No pedal edema. LABORATORY DATA: Significant for normal CBC and also normal electrolytes. Glucose is slightly high, 108. Troponin is negative. DIAGNOSTIC DATA: Chest x-ray shows no acute findings. EKG shows sinus rhythm, heart rate of 81 per minute, no acute ST-T wave changes. ASSESSMENT AND PLAN: 1. Chronic obstructive pulmonary disease exacerbation. The patient started on IV Solu-Medrol, nebulizer treatments and IV antibiotics in the form of Levaquin. The patient was given a dose of cefepime in the ER. 2. Hypertension. Continue antihypertensives. 3. Deep venous thrombosis prophylaxis, Lovenox 40 mg subcutaneous daily. JOB# [id number] VSM/NTS
[2018-12-12] MEDS: LEVAQUIN 750MG/150ML 750 MG/150 ML BAG IV SCH (09:38)
[2018-12-12] MEDS: PEPCID PO SCH (09:39)
[2018-12-12] MEDS: SODIUM CHLORIDE FLUSH SYRINGE 10 ML IV SCH (09:40)
[2018-12-12] MEDS ORDERED: COZAAR PO SCH (10:00)
--- NOTE | 2018-12-12 11:15 | Discharge Summary ---
Providers - Providers Date of Admission: 12/11/18 11:55 Date of discharge: 12/12/18 Attending physician: AYESHA MOORE [facility] Hospital[facility] Condition: Critical Pertinent studies: Chest x-ray: No infiltrates Hospital course: She is a 58-year-old female in Emergency room with complaints of difficulty breathing that started last night. Patient states using her inhaler from 2017 with no relief. Patient states that she was treated for PNA and possible COPD about couple years back but not on daily inhalers. She is currently not smoking. Patient was admitted to medical floor with scheduled nebs, iv abx, iv steroids and supplemental O2 to keep O2 sat at 94%. CXR showed no infiltrates. Patients symptom improved with medical management. High blood pressure noted to be elevated, added Norvasc suite home dose of Cozaar. She was then discharged home in stable condition with outpt f/u. 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 HTN, uncontrolled -a adjusted meds Obesity, diet and exercise modification advised Former Smoker/remote h/o smoking Disposition: DC-01 TO HOME OR SELFCARE Time spent for discharge: 34 minutes Core Measure Documentation - Palliative Care Palliative Care/ Comfort Measures: Not Applicable - Core Measures Any of the following diagnoses?: none Exam - Constitutional Vitals: Temp Pulse Resp BP Pulse Ox 97.0 F L 95 H 18 156/77 97 12/12/18 06:42 12/12/18 09:39 12/12/18 07:23 12/12/18 09:39 12/12/18 06:42 General appearance: Present: no acute distress, obese - EENT Eyes: Present: PERRL ENT: hearing intact, clear oral mucosa - Neck Neck: Present: supple, normal ROM - Respiratory Respiratory effort: normal Respiratory: bilateral: CTA - Cardiovascular Heart Sounds: Present: S1 & S2. Absent: rub, click - Extremities Extremities: pulses symmetrical, No edema Peripheral Pulses: within normal limits - Abdominal General gastrointestinal: Present: soft, non-tender, non-distended, normal bowel sounds - Integumentary Integumentary: Present: clear, warm, dry - Musculoskeletal Musculoskeletal: gait normal, strength equal bilaterally - Psychiatric Psychiatric: appropriate mood/affect, intact judgment & insight - Neurologic Neurologic: CNII-XII intact, moves all extremities Plan Activity: advance as tolerated Weight Bearing Status: Weight Bear as Tolerated Diet: low fat, low salt Follow up with: SAMINA KEITH MD [Primary Care Provider] - 3-5 Days JALEN WELCH MD [Staff Physician] - 7 Days Prescriptions: predniSONE [Deltasone] 50 mg PO QDAY #5 tab amLODIPine [Norvasc] 10 mg PO QDAY #30 tablet ALBUTEROL Inhaler (OR & NICU) [Proair] 2 puff IH QID PRN #30 day PRN Reason: Shortness Of Breath Azithromycin [Zithromax TAB] 500 mg PO QDAY #3 tablet
[2018-12-12] MEDS ORDERED: NORVASC PO SCH (12:00)
[2018-12-12] MEDS ORDERED: PNEUMOVAX 23 IM ONE (12:00)
[2018-12-12 12:04] VITALS: BP 150/72
[2018-12-12] MEDS ORDERED: LOVENOX SUB-Q SCH (22:00)
== END 2018-12-12 15:00 | disposition home or self-care (01) ==
LOC: ED 08:30 → 3A 11:55 → INTOOBSV 12-12 09:58 → OBSVTOIN 12-12 09:58
PROVIDERS: ADMIT Internal Medicine; ATTEND Internal Medicine
DX: J44.1 Chronic obstructive pulmonary disease with (acute) exacerbation (principal); I10 Essential (primary) hypertension; M19.90 Unspecified osteoarthritis, unspecified site
CPT/HCPCS: 36415; 71045; 80048; 80053; 83036; 84484; 85007; 85025; 90471; 90732; 93005; 93010; 94640; 94644; 96365; 96366; 96367; 96375; 96376; 99291; G0378; J0692; J1956; J2405; J2930; J3475

== ENCOUNTER 2021-12-30 22:40 | Emergency (ER) | payer BC, OTHER ==
[2021-12-31] MEDS ORDERED: KETOROLAC 10 MG TAB PO ONE (02:00)
[2021-12-31] MEDS ORDERED: ACETAMINOPHEN W/CODEINE 300-30 MG TAB PO ONE (02:00)
[2021-12-31] MEDS ORDERED: predniSONE 20 MG TAB PO ONE (02:00)
[2021-12-31] MEDS ORDERED: CYCLOBENZAPRINE 10 MG TAB PO ONE (02:00)
--- NOTE | 2021-12-31 02:32 | Emergency Department Report ---
ED Back Pain/Injury HPI - General Chief Complaint: Extremity Injury, Upper Stated Complaint: LEFT SIDE BACK PAIN Time Seen by Provider: 12/31/21 01:58 Source: patient Limitations: No Limitations - History of Present Illness Initial Comments: 61-year-old black female with a past medical history of hypertension and lupus presents to the emergency department for evaluation of 1 month history of left upper back pain. She states that pain is worse with movement and denies fever, shortness of breath, dysuria, abdominal pain, nausea, vomiting, and vaginal discharge. She states that she has taken ibuprofen and Tylenol for the pain with only minimal improvement. MD Complaint: back pain -: Gradual, month(s) (1) Similar Symptoms Previously: Yes Place: home Severity scale (0 -10): 10 Quality: stabbing, aching Consistency: intermittent Worsens With: movement Associated Symptoms: denies: confusion, weakness, chest pain, numbness, difficulty walking, cough, difficulty urinating, diaphoresis, incontinence, fever/chills, constipation, abdominal pain, loss of appetite, malaise, nausea/vomiting, rash, seizure, shortness of breath, syncope Treatments Prior to Arrival: NSAIDS, acetaminophen - Related Data Home Medications Medication Instructions Recorded Confirmed Last Taken Losartan [Cozaar] 25 mg PO QDAY 12/11/18 12/11/18 12/10/18 Previous Rx's Medication Instructions Recorded Last Taken Type Albuterol Mdi (or & Nicu Only) 2 puff IH QID PRN #30 day 12/12/18 Unknown Rx [Proair] Azithromycin [Zithromax TAB] 500 mg PO QDAY #3 tablet 12/12/18 Unknown Rx amLODIPine 10 mg PO QDAY #30 tablet 12/12/18 Unknown Rx predniSONE [Deltasone] 50 mg PO QDAY #5 tab 12/12/18 Unknown Rx Cyclobenzaprine [Flexeril] 10 mg PO TID PRN #30 tab 12/31/21 Unknown Rx Ketorolac [Toradol] 10 mg PO Q6H PRN #12 tab 12/31/21 Unknown Rx Lidocaine [Lidoderm] 1 each TP DAILY PRN #10 patch 12/31/21 Unknown Rx Allergies Allergy/AdvReac Type Severity Reaction Status Date / Time No Known Allergies Allergy Verified 12/11/18 08:31 ED Review of Systems ROS: Stated complaint: LEFT SIDE BACK PAIN Other details as noted in HPI Comment: All other systems reviewed and negative Constitutional: denies: chills, fever Respiratory: denies: shortness of breath Cardiovascular: denies: chest pain, palpitations Genitourinary: denies: urgency, dysuria, frequency, hematuria, discharge Musculoskeletal: back pain Neurological: denies: headache, weakness ED Past Medical Hx - Past Medical History Previous Medical History?: Yes Hx Hypertension: Yes (MEDICATED) Hx Arthritis: Yes (shoulders/hands) Hx Asthma: Yes Hx HIV: No Additional medical history: Lupus - Surgical History Past Surgical History?: No - Social History Smoking Status: Unknown if ever smoked Substance Use Type: None - Medications Home Medications: Home Medications Medication Instructions Recorded Confirmed Last Taken Type Losartan [Cozaar] 25 mg PO QDAY 12/11/18 12/11/18 12/10/18 History Albuterol Mdi (or & Nicu Only) 2 puff IH QID PRN #30 day 12/12/18 Unknown Rx [Proair] Azithromycin [Zithromax TAB] 500 mg PO QDAY #3 tablet 12/12/18 Unknown Rx amLODIPine 10 mg PO QDAY #30 tablet 12/12/18 Unknown Rx predniSONE [Deltasone] 50 mg PO QDAY #5 tab 12/12/18 Unknown Rx Cyclobenzaprine [Flexeril] 10 mg PO TID PRN #30 tab 12/31/21 Unknown Rx Ketorolac [Toradol] 10 mg PO Q6H PRN #12 tab 12/31/21 Unknown Rx Lidocaine [Lidoderm] 1 each TP DAILY PRN #10 patch 12/31/21 Unknown Rx ED Physical Exam - General Limitations: No Limitations General appearance: alert, in no apparent distress - Head Head exam: Present: atraumatic, normocephalic - Eye Eye exam: Present: normal appearance. Absent: conjunctival injection - Neck Neck exam: Present: normal inspection, full ROM. Absent: tenderness - Respiratory Respiratory exam: Present: normal lung sounds bilaterally. Absent: respiratory distress, wheezes, rales, rhonchi, stridor, chest wall tenderness - Cardiovascular Cardiovascular Exam: Present: regular rate, normal heart sounds - GI/Abdominal GI/Abdominal exam: Present: soft, normal bowel sounds. Absent: distended, tenderness, guarding, rebound, rigid - Extremities Exam Extremities exam: Present: normal inspection, full ROM, normal capillary refill. Absent: tenderness, pedal edema, joint swelling, calf tenderness - Back Exam Back exam: Present: normal inspection, tenderness (Left upper). Absent: CVA tenderness (R), CVA tenderness (L), vertebral tenderness - Expanded Back Exam Expanded 1 - Tenderness to palpation. - Neurological Exam Neurological exam: Present: alert, oriented X3, CN II-XII intact, normal gait, reflexes normal. Absent: motor sensory deficit - Psychiatric Psychiatric exam: Present: normal affect, normal mood - Skin Skin exam: Present: warm, dry, intact, normal color ED Course Vital Signs 12/30/21 23:04 Temperature 98.2 F Pulse Rate 90 Respiratory 20 Rate Blood Pressure 184/92 O2 Sat by Pulse 99 Oximetry ED Medical Decision Making - Medical Decision Making 61-year-old black female with a past medical history of hypertension and lupus p resents to the emergency department for evaluation of 1 month history of left upper back pain. She states that pain is worse with movement and denies fever, shortness of breath, dysuria, abdominal pain, nausea, vomiting, and vaginal discharge. She states that she has taken ibuprofen and Tylenol for the pain with only minimal improvement. Physical exam unremarkable. Patient will be discharged home with Toradol, Flexeril, and Lidoderm patches to use as directed. She is advised to follow-up with her primary care provider if no improvement or worsening symptoms. She is advised to return to the emergency department as needed. She verbalizes understanding of and agreement with plan of care. Critical care attestation.: If time is entered above; I have spent that time in minutes in the direct care of this critically ill patient, excluding procedure time. ED Disposition Clinical Impression: Back pain Qualifiers: Back pain location: thoracic back pain Chronicity: acute Back pain laterality: left Qualified Code(s): M54.6 - Pain in thoracic spine Disposition: HOME / SELF CARE / HOMELESS Is pt being admited?: No Does the pt Need Aspirin: No Condition: Stable Instructions: Acute Back Pain, Adult Additional Instructions: Take medications as prescribed. Follow-up with your primary care provider if no improvement or worsening symptoms. Return to the emergency department as needed. Prescriptions: Cyclobenzaprine [Flexeril] 10 mg PO TID PRN #30 tab PRN Reason: Muscle Spasm Lidocaine [Lidoderm] 1 each TP DAILY PRN #10 patch PRN Reason: Pain, Moderate (4-6) Ketorolac [Toradol] 10 mg PO Q6H PRN #12 tab PRN Reason: Pain Referrals: OLE OLIVEROS MD [Staff Physician] - 3-5 Days Forms: Work/School Release Form(ED) Time of Disposition: 02:34
[2021-12-31 02:53] VITALS: BP 176/88
== END 2021-12-31 03:15 | disposition home or self-care (01) ==
LOC: ED 22:40
DX: M54.9 Dorsalgia, unspecified (principal); I10 Essential (primary) hypertension; J45.909 Unspecified asthma, uncomplicated; M19.90 Unspecified osteoarthritis, unspecified site
CPT/HCPCS: 99282